=== PATIENT | male | born 1955 | race Caucasian/White ===

== ENCOUNTER 2020-04-19 23:13 | Emergency (ER) | payer OTHER, SELFPAY ==
--- NOTE | ~2020-04-19 | CT_ITS ---
EXAMINATION: CT abdomen pelvis wo con EXAM DATE: 04/19/2020 23:49 INDICATION: Right flank pain. TECHNIQUE: Spiral CT of the abdomen and pelvis was performed without contrast. Axial, coronal and sag ittal images were reviewed. The dose-length product (DLP) for this examination was 1040.59 mGy-cm. The exposure was tailored according to patient size (auto mA exposure control), and iterative reconst ruction (ASIR) was used as additional dose reduction technique. Comparison is made to prior examinati on from 01/22/2019. FINDINGS: There is a 4 x 6 mm stone in the proximal aspect of the right ureter causing mild obstructi ve nephropathy. The distal aspect of the ureters, and the bladder are not well evaluated due to metal lic artifact from bilateral hip replacements. Prostate is also poorly seen. There are small to modera te bilateral inguinal fat-containing hernias. Punctate left nephrolithiasis. Several small lesions in the right liver lobe inferiorly consistent with cysts measuring up to 1.2 cm . Adrenal glands, pancreas, spleen are unremarkable. There are cholecystectomy clips. There is no r etroperitoneal or pelvic lymphadenopathy. There is mild scattered arteriosclerotic disease. The appendix is normal. There is a 3 cm duodenal diverticulum. There is moderate sigmoid and descend ing colonic diverticulosis. There is no adjacent inflammatory change to suggest diverticulitis. No free intraperitoneal gas. The heart is normal in size. There are no pericardial or pleural effusio ns. The lung bases are unremarkable. There are no osteoblastic or osteolytic lesions identified. IMPRESSION: 1. Right proximal ureteral 4 x 6 mm stone, mild obstructive nephropathy. 2. Moderate colonic diverticulosis. 3. Duodenal diverticulum. 4. Punctate left nephrolithiasis. Reviewed, dictated and finalized at location G.
--- NOTE | ~2020-04-19 | XR_ITS ---
XR abdomen/kub 1V 04/20/2020 01:42 Indication: Kidney stones. Right flank pain. Procedure: KUB Comparison: CT dated 04/19/2020 Findings: Stable position of right mid ureteral stone at the L4 level overlying for differences of ary dalal. There are cholecystectomy clips. Bowel gas pattern nonobstructive. There are bilateral hip a rthroplasties. No acute osseous abnormality. Impression: 1: Stable position to 6 mm right mid ureteral stone at the L4 level. Reviewed, dictated and finalized at location A. Impression: 1: Stable position to 6 mm right mid ureteral stone at the L4 level.
[2020-04-19 23:17] VITALS: BP 148/75; PULSE 71; RESP 16; TEMP 36.5; O2SAT 99
--- NOTE | 2020-04-19 23:24 | ED.ABDPAIN ---
HPI - Abdominal Pain General Chief Complaint: Urogenital-Male Stated Complaint: flank pain Time Seen by Provider: 04/19/20 23:24 History of Present Illness HPI narrative: Intermittent right flank pain for the past week. Radiates to the RLQ. Severe at times, currently /10. associated with nausea. h/o kidney stone in the distant past, he believes that this is similar. No dyuria, hematuria, fever, chills. Related Data Allergies Allergy/AdvReac Type Severity Reaction Status Date / Time No Known Allergies Allergy Verified 08/11/19 09:22 Review of Systems Review of Systems: All systems reviewed & are unremarkable except as noted in HPI and below Constitutional: Constitutional: Denies fever(s) Cardiovascular: Cardiovascular: Denies chest pain Respiratory: Respiratory: Denies dyspnea Gastrointestinal: Gastrointestinal: Reports abdominal pain and Reports nausea Genitourinary: Genitourinary: Denies hematuria and Denies dysuria [facility] Past Medical History Medical History Elevated PSA HLD (hyperlipidemia) Left nephrolithiasis Type 2 diabetes mellitus Social History Social History Smoking status: Never smoker Second hand tobacco smoke exposure: Yes Alcohol intake: never Exam Const: General: healthy appearing, no acute distress and alert Orientation/consciousness: patient oriented x3 HENMT: Head: normal to inspection Neck: Neck: normal visual inspection and no lymphadenopathy Chest: Chest palpation & inspection: no tenderness Resp: Effort & Inspection: normal respiratory effort Auscultation: clear to auscultation bilaterally, no rales, no rhonchi and no wheezes Cardio: Jugular venous distension: no JVD Rate: regular rate Rhythm: regular rhythm Heart sounds: no murmurs GI: Inspection: non-distended GI Palp: Yes Soft to palpation and No Tenderness to palpation present (GI) Skin: General skin exam: normal color Neuro: General: patient oriented x3 and moves all extremities Speech: normal speech Extrem: General: no edema Psych: Appearance: well kempt Affect: normal affect Course Vital Signs Vital signs: Vital Signs Temperature 36.5 C 04/19/20 23:17 Pulse Rate 71 04/19/20 23:17 Respiratory Rate 16 04/19/20 23:17 Blood Pressure 148/75 H 04/19/20 23:17 Pulse Oximetry 99 04/19/20 23:17 Temperature 36.5 C 04/19/20 23:17 Pulse Rate 82 04/20/20 02:16 Respiratory Rate 20 04/20/20 02:16 Blood Pressure 139/77 04/20/20 02:16 Pulse Oximetry 97 04/20/20 02:16 MDM - Abdominal Pain MDM Narrative Medical decision making narrative: Moderate sized proximal stone. Pain under good control. I will discharge him home with pain meds, flomax, and urology follow-up. . pain significantly decreased. Likely passed stone while in ED. Medical Records Attestation: I reviewed the patient's medical records. Lab Data Attestation: I reviewed the patient's lab results. Result diagrams: 04/19/20 23:53 04/19/20 23:53 Labs: Lab Results 04/19/20 04/19/20 04/19/20 Range/Units 23:29 23:53 23:53 WBC 9.4 (4.5-10.0) K/mm3 RBC 4.87 (4.6-6.20) M/mm3 Hgb 15.1 (14.0-18.0) g/dL Hct 43.9 (42.0-52.0) % MCV 90.1 (80-100) fl MCH 31.0 (26-34) pg MCHC 34.4 (32-36) g/dl RDW 11.9 (11.5-14.5) % Plt Count 201 (150-375) k/mm3 MPV 10.4 (7.4-10.4) fl Immature Gran % (Auto) 0.6 H (0-0.5) % Neut % (Auto) 73.1 (45.5-73.1) % Lymph % (Auto) 14.5 L (18.3-44.2) % Bibb % (Auto) 9.2 H (2.6-8.5) % Eos % (Auto) 2.3 (0-4.4) % Baso % (Auto) 0.3 (0.2-1.2) % Lymph # (Auto) 1.36 (0.9-3.2) K/mm3 Bibb # (Auto) 0.9 H (0.1-0.6) K/mm3 Eos # (Auto) 0.2 (0-0.3) K/mm3 Baso # (Auto) 0.0 (0.0-0.1) K/mm3 Abs Immat Gran (auto) 0.06 H (0.00-0.031) K/mm3 Absolute Neuts (auto) 6.9 H
[2020-04-19 23:41] LABS: Add Urine Microscopic? YES; Appearance Urine Clear (Clear); Bilirubin Urine Negative (Negative); Blood Urine 2+ (Negative); Color Urine Straw (Yellow); Glucose Urine UA Negative (Negative); Ketones Urine Negative (Negative); Leukocyte Esterase Ur Negative LEU/UL (Negative); Nitrate Urine Negative (Negative); Protein Urine Negative (Negative); Specific Grav Ur 1.014 (1.001-1.035); Urobilinogen Urine Negative mg/dL (<2.0); WBC Urine 0-3 /hpf
[2020-04-20 00:14] LABS: Anion Gap 10 mmol/L (8-16); Blood Urea Nitrogen 29 mg/dL (9-20); Calcium 8.8 mg/dL (8.4-10.2); Carbon Dioxide 25 mmol/L (22-30); Chloride 102 mmol/L (98-107); Estimated Glomerular Filt Rate > 60; Glucose 102 mg/dL (75-110); Potassium 4.1 mmol/L (3.4-5.0); Sodium 137 mmol/L (137-145)
[2020-04-20 00:20] LABS: Basophils Percent Auto 0.3 % (0.2-1.2); Eosinophils Absolute Auto 0.2 K/mm3 (0-0.3); Eosinophils Percent Auto 2.3 % (0-4.4); Hematocrit 43.9 % (42.0-52.0); Hemoglobin 15.1 g/dL (14.0-18.0); Immature Granulocyte Absolute 0.06 K/mm3 (0.00-0.031); Immature Granulocyte Percent A 0.6 % (0-0.5); Lymphocytes Absolute Auto 1.36 K/mm3 (0.9-3.2); Lymphocytes Percent Auto 14.5 % (18.3-44.2); Mean Corpuscular HGB Conc 34.4 g/dl (32-36); Mean Corpuscular Volume 90.1 fl (80-100); Mean Platelet Volume 10.4 fl (7.4-10.4); Monocytes Absolute Auto 0.9 K/mm3 (0.1-0.6); Monocytes Percent Auto 9.2 % (2.6-8.5); Neutrophils Absolute Auto 6.9 K/mm3 (1.3-6.7); Neutrophils Percent Auto 73.1 % (45.5-73.1); Platelet Count Result 201 k/mm3 (150-375); Red Blood Count 4.87 M/mm3 (4.6-6.20); Red Cell Distribution Width 11.9 % (11.5-14.5); White Blood Count 9.4 K/mm3 (4.5-10.0)
[2020-04-20] MEDS: SODIUM CHLORIDE 0.9% IV 1,000 ML 999 ML IV CONT (00:20)
[2020-04-20] MEDS: TAMSULOSIN HCL 0.4 MG CAPSULE PO (00:21)
[2020-04-20] MEDS: MORPHINE SULFATE 4 MG/ML INJ IV PUSH (01:04)
[2020-04-20 02:16] VITALS: BP 139/77; PULSE 82; RESP 20; O2SAT 97
== END 2020-04-20 03:03 | disposition home or self-care (01) ==
PROVIDERS: Emergency Provider Emergency Medicine; PCP Family Medicine
DX: N20.1 Calculus of ureter (principal); N13.8 Other obstructive and reflux uropathy; E78.5 Hyperlipidemia, unspecified; E11.9 Type 2 diabetes mellitus without complications; Z87.442 Personal history of urinary calculi; N20.0 Calculus of kidney; K57.50 Diverticulosis of both small and large intestine without perforation or abscess without bleeding
CPT/HCPCS: 36415; 74018; 74176; 80048; 81001; 85025; 96361; 96374; 99284; A9270; J2270; J7030

== ENCOUNTER → 2020-05-13 14:40 | Outpatient (CLI) | payer BC, SELFPAY ==
--- NOTE | ~2020-05-13 | XR_ITS ---
EXAMINATION: XR abdomen/kub 1V INDICATION: Bilateral kidney stones TECHNIQUE: Supine views of the abdomen were obtained on 2 radiographs. COMPARISON: 04/20/2020 FINDINGS: The previously described 6 mm right mid ureteral stone appears to have migrated to the dist al ureter, projecting over the right sacrum. No additional urolithiasis is identified. The bowel gas pattern is normal. There is mild lumbar spondylosis. Bilateral hip arthroplasties are noted. IMPRESSION: 1. Slight interval distal migration of the previously described right mid ureteral stone into the dis kevin ureter. Reviewed, dictated and finalized at location A. IMPRESSION: 1. Slight interval distal migration of the previously described right mid urete ral stone into the distal ureter.
== END ==
PROVIDERS: PCP Family Medicine; Visit Provider Urology
DX: N20.0 Calculus of kidney (principal); N20.1 Calculus of ureter
CPT/HCPCS: 74018

== ENCOUNTER 2020-05-15 01:56 | Outpatient (CLI) | payer BC, SELFPAY ==
[2020-05-15 19:19] LABS: SARS-CoV-2 RNA PCR Negative
== END 2020-05-15 01:57 | disposition home or self-care (01) ==
LOC: ANHCOVIDDT 01:57
PROVIDERS: PCP Family Medicine; Visit Provider Urology
DX: Z01.812 Encounter for preprocedural laboratory examination (principal); Z20.828 Contact with and (suspected) exposure to other viral communicable diseases
CPT/HCPCS: 87635; C9803; U0003

== ENCOUNTER 2020-05-16 04:27 | Day surgery (SDC) | payer BC, SELFPAY ==
[2020-05-14 12:16] VITALS: BMI 31.6
[2020-05-16] VITALS (8 sets, daily range): BP systolic 130–159; BP diastolic 68–84; PULSE 58–77; RESP 14–20; TEMP 36.4–36.8; O2SAT 97–99
--- NOTE | ~2020-05-16 | XR_ITS ---
EXAMINATION: XR stent kub - surgery DATE: 05/16/2020 12:25 INDICATION: Ureteral stent placement TECHNIQUE: 4 fluoroscopic spot images of the abdomen and pelvis were obtained during procedure perfor med by Dr. Retana. Radiologist was not present for the imaging or procedure. The amount of fluoroscop y time used during this procedure was 0.5 minutes. COMPARISON: CT dated 04/19/2020 FINDINGS: Funding Analyst image demonstrates cholecystectomy clips in right upper quadrant. The stone previously seen in the mid right ureter is not clearly visualized on the health services rn image. Final images demonstrate placement of a right internal ureteral stent with loops formed over the expected location of the right renal p evelin and bladder. Partially visualized are bilateral total hip arthroplasties. IMPRESSION: 1. Right internal ureteral stent placement which is in expected position. See procedure note for furt her detail. Reviewed, dictated and finalized at location A. IMPRESSION: 1. Right internal ureteral stent placement which is in expected position. See p rocedure note for further detail.
--- NOTE | 2020-05-16 06:49 | WPDHPUPDATE1 ---
History and Physical Update Update Date/Time: 05/16/20 06:49 History and Physical has been reviewed, including an updated exam of the patient. There are NO changes in the patient's condition. Risks, benefits, and alternatives have been discussed and questions answered. Patient agrees to proceed with procedure.
--- NOTE | 2020-05-16 10:04 | ECG_ITS ---
Measurements Intervals [place] Rate: 62 P: -2 LA: 199 QRS: -12 QRSD: 111 T: 51 QT: 390 QTc: 398 Interpretive Statements SINUS RHYTHM INTRAVENTRICULAR CONDUCTION DELAY DELAYED PRECORDIAL R/S TRANSITION BORDERLINE ECG Electronically Signed On 05-16-2020 11:12:14 CDT by Nir Bay D.O.
--- NOTE | 2020-05-16 10:21 | WPDANESEPPF ---
Anes - Initial Pre Proc Eval Procedure: Operation Date: 05/16/20 12:00 Proposed Procedures p Cystoscopy, Right Ureteroscopy, Right Stone Extraction, Possible Right Stent Placement - Mika Retana MD s Possible Holmium Laser Procedure - Mika Retana MD Date/Time: 05/16/20 10:21 Surgeon: Mika Retana MD Pre Op Diagnosis: Right Ureteral Stone Patient Data Age: 64 Gender: M Height: 5 ft 7 in Weight: 91.63 kg Allergies Allergy/AdvReac Type Severity Reaction Status Date / Time No Known Allergies Allergy Verified 05/14/20 12:19 Home Medications Medication Instructions Recorded Confirmed Type simvastatin 20 mg tablet 20 mg PO DAILY #90 tablet 01/22/20 05/14/20 Rx Soybean Lecithin 1 cap PO DAILY 05/14/20 History aspirin 81 mg PO DAILY 05/14/20 05/14/20 History cranberry 500 mg PO DAILY 05/14/20 05/14/20 History diphenhydramine-acetaminophen 2 tablet PO HS 05/14/20 05/14/20 History [Tylenol PM Extra Strength] glucos sul [id number]-Mn 1 cap PO DAILY 05/14/20 05/14/20 History [Glucosamine Chondroitin] multivitamin 1 tablet PO DAILY 05/14/20 05/14/20 History omega 7-lsl-itk-fish oil [Fish Oil] 1 cap PO BID 05/14/20 05/14/20 History turmeric 800 mg PO DAILY 05/14/20 05/14/20 History Patient hx anesthesia problems: none Family hx anesthesia problems: none PMFSH Past Medical History Medical History Elevated PSA HLD (hyperlipidemia) Left nephrolithiasis Type 2 diabetes mellitus Social History Social History Smoking status: Never smoker Second hand tobacco smoke exposure: Yes Alcohol intake: never Spiritual care concerns: No Anes - Eval Final PreProcedure Day of Procedure 05/16/20 10:21 Patient weight: obese Heart: regular rate and rhythm Lungs: clear to auscultation Airway: Mallampati scale class II Neurological: alert and oriented Last oral intake: >/= 8 hours ASA classification: III Emergent: no Anesthetic plan: proceed Anesthesia type and monitoring: general LMA and standard monitoring Informed Consent: The patient's anesthetic plan and its attendant risks and benefits were discussed with the patient/family/POA. Questions were solicited and answers provided to the satisfaction of the patient/family/POA.
[2020-05-16] MEDS: LACTATED RINGERS 1,000 ML 30 ML IV CONT (10:36)
[2020-05-16 10:57] LABS: Glucose Point of Care 107 (65-105)
[2020-05-16] MEDS: ceFAZolin 2 GM/D5W 50 ML 2 GM/50 ML BAG IVPB (11:41)
[2020-05-16] MEDS: LIDOCAINE HCL 2% GEL UROJET 10 ML PKG MUCOUS MEM (11:56)
--- NOTE | 2020-05-16 12:23 | PM.PROC ---
Procedure Note - Detailed Date of procedure: 05/16/20 Pre-op diagnosis: Right Ureteral Stone Post-op diagnosis: same Procedure performed: Cystoscopy, right ureteroscopy with laser lithotripsy, right ureteral stone extraction and right ureteral stent placement. Description of procedure: The patient was brought to the operative suite where he is prepped and draped in a routine sterile fashion while in the dorsal lithotomy position after the uneventful induction of a general LMA anesthetic. A 19F rigid cystoscope was placed in the bladder. There are no urethral strictures. His prostatic urethra measures, approximately, 2.0cm with no median lobe enlargement. The bladder mucosa was endoscopically normal without hyperemia or neoplasm. There was a single, orthotopic ureteral orifice bilaterally. A 0.035 glidewire was advanced into the right renal pelvis under fluoroscopy. The distal ureter was dilated with an 8F/10F ureteral dilator. Ureteroscopy was undertaken with a short tapered semi-rigid ureteroscope. During ureteroscopy I fractured the stone into smaller pieces using a 273 micron Holmium laser fiber with the Holmium laser. I was able to then extract the stone pieces using a 1.9F Escape, disposable stone basket. Due to the extent of this manipulation I did place a 4.8F double-J ureteral stent. The proximal coil of the stent was confirmed to be in the renal pelvis and the distal coil in the bladder. The patient's bladder was emptied and he was taken to the recovery room having tolerated this procedure well. Anesthesia: GLMA Surgeon: Mika Retana MD Estimated blood loss (mL): 0 Drains: No Packing: No Pathology: yes Complications: No immediate complications Condition: stable Disposition: PACU
[2020-05-16 12:36] LABS: Glucose Point of Care 108 (65-105)
--- NOTE | 2020-05-16 13:24 | SUR.PHASEII ---
1319; PT ARRIVED INTO [place]. WALKED TO BATHROOM. GAIT STEADY
--- NOTE | 2020-05-16 13:42 | SUR.PHASEII ---
PT AWAKE AND ALERT. DENIES PAIN. STATES CARROLL WITH URINATION ONLY. ASKING IF HE CAN GO HOME
--- NOTE | 2020-05-16 14:15 | SUR.PHASEII ---
1415; PT VOIDED IN BATHROOM. STATES PAIN MODERATE WITH URINATION. ABLE TO PASS URINE FREELY, BLOODY. STATES HE DOES NOT WANT ANY PAIN MEDICINE AT THIS TIME. DRESSED AND WAITING FOR RIDE.
== END 2020-05-16 14:27 | disposition home or self-care (01) ==
PROVIDERS: PCP Family Medicine; Visit Provider Urology
PROC: (CPT 52352; principal; 2020-05-16 12:00)
PROC: (CPT 52356; 2020-05-16 12:00)
DX: N20.1 Calculus of ureter (principal); E11.9 Type 2 diabetes mellitus without complications; E78.5 Hyperlipidemia, unspecified; Z79.82 Long term (current) use of aspirin; E66.9 Obesity, unspecified; Z68.31 Body mass index [BMI] 31.0-31.9, adult
CPT/HCPCS: 52356; 82365; 88300; 93005; A9270; C1769; C2617; J0690; J1100; J2250; J2405; J2704; J3010; J7120; Q9966

== ENCOUNTER → 2020-11-09 05:29 | Outpatient (CLI) | payer MEDICARE, SELFPAY ==
[2020-11-09 19:34] LABS: SARS-CoV-2 RNA PCR Negative
== END ==
PROVIDERS: PCP Family Medicine; Visit Provider Internal Medicine Gastroenterology
DX: Z01.812 Encounter for preprocedural laboratory examination (principal); Z20.822 Contact with and (suspected) exposure to COVID-19
CPT/HCPCS: C9803; U0003; U0005

== ENCOUNTER 2020-11-13 01:36 | Day surgery (SDC) | payer MEDICARE, SELFPAY ==
[2020-10-31 09:11] VITALS: BMI 32.8
[2020-11-13 06:27] VITALS: BP 136/80; PULSE 73; RESP 16; TEMP 36.6; O2SAT 94; BMI 34.0
[2020-11-13] MEDS: LACTATED RINGERS 1,000 ML 150 ML IV CONT (06:36)
--- NOTE | 2020-11-13 06:59 | PM.HPGS ---
History of Present Illness History of Present Illness Consent: Risks, benefits, and alternatives have been discussed and questions answered. Patient agrees to proceed with procedure. Chief complaint: neoplasm screening Narrative: Joe Loja is a 65 year old male Referred for colon cancer screening. Review of Systems Review of Systems: All systems reviewed & are unremarkable except as noted in HPI and below PMFSH Past Medical History Medical History Elevated PSA HLD (hyperlipidemia) Left nephrolithiasis Obesity (BMI 30.0-34.9) Obstructive sleep apnea Type 2 diabetes mellitus Social History Social History Smoking status: Never smoker Second hand tobacco smoke exposure: Yes Alcohol intake: never Substance use: never Substance use type: does not use Living arrangements: with family Spiritual care concerns: No Meds Home Medications and Allergies Home Medications Medication Instructions Recorded Confirmed Type simvastatin 20 mg tablet 20 mg PO DAILY #90 tablet 01/22/20 11/13/20 Rx Glucosamine Chondroitin 1 cap PO DAILY 05/14/20 11/13/20 History Soybean Lecithin 1 cap PO DAILY 05/14/20 11/13/20 History aspirin 81 mg PO DAILY 05/14/20 11/13/20 History cranberry 500 mg PO DAILY 05/14/20 11/13/20 History multivitamin 1 tablet PO DAILY 05/14/20 11/13/20 History omega 8-gsc-mor-fish oil [Fish Oil] 1 cap PO BID 05/14/20 11/13/20 History turmeric 800 mg PO DAILY 05/14/20 11/13/20 History diphenhydramine HCl [Allergy 50 mg PO HS 10/31/20 11/13/20 History (diphenhydramine)] Allergies Allergy/AdvReac Type Severity Reaction Status Date / Time No Known Allergies Allergy Verified 11/13/20 06:24 Vital Signs Vital Signs - 24 hr 11/13/20 06:27 Temperature 36.6 C Pulse Rate 73 Respiratory Rate 16 Blood Pressure 136/80 Pulse Oximetry 94 Exam Resp: Auscultation: clear to auscultation bilaterally Cardio: Rate: regular rate Rhythm: regular rhythm GI: GI Palp: Yes Soft to palpation and No Tenderness to palpation present (GI) Assessment and Plan Assessment and plan (1) Colon cancer screening: Code(s): Z12.11 - Encounter for screening for malignant neoplasm of colon Status: Acute Assessment and Plan: Colonoscopy with possible biopsy or polypectomy or cautery or injection of substances.
--- NOTE | 2020-11-13 07:16 | WPDANESEPPF ---
Anes - Initial Pre Proc Eval Procedure: Operation Date: 11/13/20 07:30 Proposed Procedures p Screening Colonoscopy - Brandon Baker MD Date/Time: 11/13/20 07:16 Surgeon: Brandon Baker MD Pre Op Diagnosis: neoplasm screening Patient Data Age: 65 Gender: M Height: 5 ft 7 in Weight: 98.7 kg Last Vital Signs Temp 97.8 F 11/13/20 06:27 Pulse 73 11/13/20 06:27 Resp 16 11/13/20 06:27 BP 136/80 11/13/20 06:27 Pulse Ox 94 11/13/20 06:27 Allergies Allergy/AdvReac Type Severity Reaction Status Date / Time No Known Allergies Allergy Verified 11/13/20 06:24 Home Medications Medication Instructions Recorded Confirmed Type simvastatin 20 mg tablet 20 mg PO DAILY #90 tablet 01/22/20 11/13/20 Rx Glucosamine Chondroitin 1 cap PO DAILY 05/14/20 11/13/20 History Soybean Lecithin 1 cap PO DAILY 05/14/20 11/13/20 History aspirin 81 mg PO DAILY 05/14/20 11/13/20 History cranberry 500 mg PO DAILY 05/14/20 11/13/20 History multivitamin 1 tablet PO DAILY 05/14/20 11/13/20 History omega 2-rer-ive-fish oil [Fish Oil] 1 cap PO BID 05/14/20 11/13/20 History turmeric 800 mg PO DAILY 05/14/20 11/13/20 History diphenhydramine HCl [Allergy 50 mg PO HS 10/31/20 11/13/20 History (diphenhydramine)] Patient hx anesthesia problems: none Family hx anesthesia problems: none PMFSH Past Medical History Medical History Elevated PSA HLD (hyperlipidemia) Left nephrolithiasis Obesity (BMI 30.0-34.9) Obstructive sleep apnea Type 2 diabetes mellitus Social History Social History Smoking status: Never smoker Second hand tobacco smoke exposure: Yes Alcohol intake: never Substance use: never Substance use type: does not use Living arrangements: with family Spiritual care concerns: No Anes - Eval Final PreProcedure Day of Procedure 11/13/20 07:16 Patient weight: obese Heart: regular rate and rhythm Lungs: clear to auscultation Airway: Mallampati scale class II Neurological: alert and oriented Last oral intake: >/= 8 hours ASA classification: III Emergent: no Anesthetic plan: proceed Anesthesia type and monitoring: general GIVS and standard monitoring Informed Consent: The patient's anesthetic plan and its attendant risks and benefits were discussed with the patient/family/POA. Questions were solicited and answers provided to the satisfaction of the patient/family/POA.
[2020-11-13 07:43] VITALS: BP 116/72; PULSE 70; RESP 13; O2SAT 94
[2020-11-13 07:53] VITALS: BP 102/65; PULSE 72; RESP 22; O2SAT 98
[2020-11-13 08:09] VITALS: BP 125/83; PULSE 72; RESP 22; O2SAT 98
== END 2020-11-13 08:17 | disposition home or self-care (01) ==
PROVIDERS: PCP Family Medicine; Visit Provider Internal Medicine Gastroenterology
PROC: 0DJD8ZZ Inspection of Lower Intestinal Tract, Via Natural or Artificial Opening Endoscopic (ICD-10-PCS; CPT 45378; principal; 2020-11-13 07:30)
DX: Z12.11 Encounter for screening for malignant neoplasm of colon (principal); K57.30 Diverticulosis of large intestine without perforation or abscess without bleeding; Z86.010 Personal history of colon polyps; E78.5 Hyperlipidemia, unspecified; E11.9 Type 2 diabetes mellitus without complications; G47.33 Obstructive sleep apnea (adult) (pediatric); E66.9 Obesity, unspecified; Z68.34 Body mass index [BMI] 34.0-34.9, adult; Z79.82 Long term (current) use of aspirin
CPT/HCPCS: G0105; J2704; J7120

== ENCOUNTER → 2021-02-17 03:31 | Outpatient (CLI) | payer MEDICARE, SELFPAY ==
[2021-02-17 16:50] LABS: SARS-CoV-2 RNA PCR Negative
== END ==
PROVIDERS: PCP Family Medicine; Visit Provider Internal Medicine Critical Care Medicine
DX: R68.89 Other general symptoms and signs (principal); Z20.822 Contact with and (suspected) exposure to COVID-19
CPT/HCPCS: C9803; U0003; U0005

== ENCOUNTER 2021-02-19 09:54 | Outpatient (CLI) | payer MEDICARE, SELFPAY ==
--- NOTE | 2021-03-10 07:12 | WPDSLEEPSTUD ---
Sleep Study Date of Study: 02/19/21 Ordering Provider: Nikki Corado MD Interpreting Physician: Poly Marshall MD Sleep Study Type: CPAP Titration Height: 1.7 m Weight: 210 kg Body Mass Index: 72.5 Neck Circumference (inches): 18 [place]: 4 Reason for Sleep Study Hypersomnolence; known obstructive sleep apnea * Split night study 11/06/2011 - severe obstructive sleep apnea, AHI 35.1, heavy snoring, moderate myoclonus, desaturation to 82%, optimal pressure 10 cm Sleep History Joe Loja is a 65 year old male with obstructive sleep apnea who uses CPAP without feeling refreshed in the mornings despite compliance with treatment. His last sleep study was November 06, 2011 iwth an optimal pressure of 10 cm. He did not complete a sleep questionnaire for this visit. [facility] Past Medical History Medical History (Updated 03/10/21 @ 07:39 by Poly Marshall MD) Elevated PSA HLD (hyperlipidemia) Left nephrolithiasis Normal colonoscopy (~11/2020) Obesity (BMI 30.0-34.9) Obstructive sleep apnea Type 2 diabetes mellitus Social History Social History (Updated 12/26/20 @ 08:28 by Saira Bolton [facility]) Second hand tobacco smoke exposure: Yes Alcohol intake: never Substance use: never Substance use type: does not use Spiritual care concerns: No Agree to blood products: Yes Medications Home Medications Medication Instructions Recorded Confirmed Type simvastatin 20 mg tablet 20 mg PO DAILY #90 tablet 01/22/20 11/13/20 Rx Glucosamine Chondroitin 1 cap PO DAILY 05/14/20 11/13/20 History Soybean Lecithin 1 cap PO DAILY 05/14/20 11/13/20 History aspirin 81 mg PO DAILY 05/14/20 11/13/20 History cranberry 500 mg PO DAILY 05/14/20 11/13/20 History multivitamin 1 tablet PO DAILY 05/14/20 11/13/20 History omega 0-mot-dym-fish oil [Fish Oil] 1 cap PO BID 05/14/20 11/13/20 History turmeric 800 mg PO DAILY 05/14/20 11/13/20 History diphenhydramine HCl [Allergy 50 mg PO HS 10/31/20 11/13/20 History (diphenhydramine)] Sleep Procedure This test was performed using the [employer] multiple channel system including EOG, EEG, submental EMG, EKG, nasal and oral airflow using thermistors and nasal pressure sensors, chest and abdominal belts for body position data, and pulse oximetry. Video monitoring was also performed. The study was scored using [facility] guidelines. He took 2 Tylenol PM at the start of the test. The patient was started on CPAP using a ResMed AirFit P 30 nasal pillow and heated humidifier with an initial pressure of 5 cm titrated to a maximal pressure of 12 cm. When he reached 10 cm, he said that he was going to go home, was finished with the test. The tech asked him to stay, and he was able to return to sleep, had a small amount of REM at a pressure of 12 cm water pressure. Sleep efficiency was low 29% however the apnea-hypopnea index was 0. The minimum saturation was 86%. At this pressure, he spent 29 minutes in bed, 3 minutes in REM, 4 minutes in non-REM, minimum saturation was 86%, with a mean saturation of 89.6%. He did not have sustained hypoxemia at this pressure. Sleep Architecture Recording time is 355.1 minutes. Sleep duration 272 minutes. Sleep efficiency 76.6%. Sleep latency is short at 4.4 minutes. REM latency 76.5 minutes. He had 37 awakenings. He spent 22.5% of the study awake after sleep onset. Sleep architecture showed 6.4% stage 1 sleep, 59.6% stage 2 sleep, absence of stage 3 sleep and 11.5% stage REM. He spent 47.4% of this CPAP titration supine. He had 3 fragmented REM cycles. Respiratory Analysis The apnea-hypopnea index is 2.0, all obstructive events. in supine REM he had 3 obstructive hypopneas for an index of 8.0. In nonsupine REM he had 1 obstructive hypopnea for an index of 3.3. In supine non-REM he had 2 obstructive hypopneas for an index of 0.8. And nonsupine non-REM he had 3 obstructive hypopneas for an index of 2.1. The supine index is 1.8. Nonsupine index is 2.3. [place]
[2021-03-10 07:42] VITALS: BMI 72.5
== END 2021-02-20 05:56 | disposition home or self-care (01) ==
LOC: ANHCSM 09:56
PROVIDERS: PCP Family Medicine; Visit Provider Family Medicine
DX: G47.33 Obstructive sleep apnea (adult) (pediatric) (principal)
CPT/HCPCS: 95811

== ENCOUNTER 2021-11-06 12:35 | Outpatient (CLI) | payer MEDICARE, SELFPAY ==
--- NOTE | 2021-11-06 12:50 | ECG_ITS ---
Measurements Intervals [place] Rate: 81 P: 42 WI: 182 QRS: -2 QRSD: 109 T: 50 QT: 359 QTc: 419 Interpretive Statements SINUS RHYTHM BASELINE ARTIFACT COMPARED TO ECG 05/16/2020 10:21:07 NO SIGNIFICANT CHANGES Electronically Signed On 11-06-2021 15:48:06 CDT by Maik Higgins M.D.
== END 2021-11-06 12:36 | disposition home or self-care (01) ==
LOC: ANHCARD 12:39
PROVIDERS: PCP Family Medicine; Visit Provider Family Medicine
DX: E11.9 Type 2 diabetes mellitus without complications (principal)
CPT/HCPCS: 93005

== ENCOUNTER 2024-09-06 15:14 | Outpatient (CLI) | payer MEDICARE, SELFPAY ==
--- NOTE | ~2024-09-06 | US_ITS ---
EXAMINATION: US venous doppler [facility] DATE: 09/06/2024 16:23 INDICATION: Lower limb pain, swelling and erythema TECHNIQUE: Grayscale ultrasound images without and with compression and Doppler ultrasound images of the left lower extremity veins were obtained. COMPARISON: None. FINDINGS: There is noncompressible deep venous thrombosis throughout the veins of the left lower limb including the visualized portions of left common femoral vein, profunda (deep) femoral vein, femoral vein, pop liteal vein, peroneal veins, posterior tibial veins and gastrocnemius vein. The left greater saphenou s vein remains patent and compressible. IMPRESSION: 1. Extensive left [id number] and [id number]-dyc-ycoy deep venous thrombosis. Reviewed, dictated and finalized at location B. [employer] IMPRESSION: 1. Extensive left [id number] and [id number]-rgr-vtri deep venous thrombosis.
--- OUTSIDE RECORDS SUMMARY | 2024-09-06 16:02 | XMS_ITS | Patient Health Summary ---
Author Organization [facility] Address [address] [place] [address] Care Team Providers Care Job Change Crew Member Name Role Phone Fany SCRUGGS MD, Tristen Unavailable [phone] Nikki Corado MD Primary Care Provider [phone] Note from [facility],non-owned Affiliates and Associated Physician Practices is amultiple site organization consisting of ambulatory clinics and hospital sitesin [place], [place], [place] and [place]. This disclosure is being madepursuant to the Care Everywhere program and may not contain all information available regarding this patient. Last updated 18.[facility] Allergies No known active allergies Medications * Be aware that medications may not be up to date on this document. Alwaysverify current medications with the patient. * [place] 3-6-9 Fatty Acids (TRIPLE [place]-3-6-9 PO) Take by mouth at bedtime * Turmeric 450 MG CAPS Take 2 Caps by mouth at bedtime * Lecithin 1200 MG CAPS Take by mouth at bedtime 1325mg at bedtime * simvastatin (ZOCOR) 20 MG tablet(Started 04/30/2019) TAKE 1 TABLET BY MOUTH ONCE DAILY IN THE EVENING 1 refill left * Multiple Vitamin (MULTIVITAMIN ADULT PO) * ELDERBERRY PO Take 50 mg by mouth once daily * Multiple Vitamins-Minerals (ZINC PO) Take 50 mg by mouth once daily * CRANBERRY PO Take 15,000 mg by mouth * Ascorbic Acid (VITAMIN C PO) * ibuprofen (Motrin) 800 MG tablet(Started 05/11/2024) Take 1 (one) tablet by mouth 3 times daily as needed with food for Pain 1 refill by 05/11/2025 * nystatin (Mycostatin) 283035 UNIT/GM cream(Started 05/11/2024) Apply to affected area 2 times daily Right axilla/ armpit as needed for rash or itching. 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 Arthralgia of hip 11/25/2017 Right hip pain 11/01/2017 Bilateral hip pain 01/28/2015 Left hip pain 01/28/2015 Social History Tobacco Use Types Packs/Day Years Used Date Smoking Tobacco: Never Smokeless Tobacco: Never Tobacco Cessation:Counseling Given: Not Answered Alcohol Use Standard Drinks/Week Comments No 0 (1 standard drink = 0.6 oz pur e alcohol) PHQ-2 Answer Date Recorded Patient Health Questionnaire-2 Score 3 08/06/2024 Sex and Gender Information Value Date Recorded Sex Assigned at Not on file Gender Identity Not on file Sexual Orientation Not on file Last Filed Vital Signs Vital Sign Reading Time Taken Comments Blood Pressure 123/70 05/11/2024 3:05 PM CDT Pulse 81 05/11/2024 3:05 PM CDT Temperature 36.2 ??C (97.1 ??F) 05/11/2024 2:00 PM CD T Respiratory Rate 22 05/11/2024 3:05 PM CDT Oxygen Saturation 91% 05/11/2024 3:05 PM CDT Inhaled Oxygen Concentration - - Weight 109.8 kg (242 lb) 05/11/2024 9:20 AM CDT Height 167.6 cm (5' 6 ) 05/11/2024 9:20 AM CDT Body Mass Index 39.06 05/11/2024 9:20 AM CDT Medical Devices Implanted Type Area Home Appraiser Device Identifier Shelf Expiration Date Model / Serial / Lot Acetabular Cup Implanted:Qty: 1 on 03/12/2015 by Tristen Soares IV, MD at [facility] Left: Hip [employer] 10/06/2024 [id number] / / [id number] Acetabular Liner Implanted:Qty: 1 on 03/12/2015 by Tristen Soares IV, MD at [facility] Left: [employer] 01/03/2020 [id number] / / [id number] Scrw Selftap Lo Prof Ti 6.5 X 30mm Implanted:Qty: 1 on 03/12/2015 by Tristen Soares IV, MD at [facility] Left: [employer] 02/12/2025 [id number] / / [id number] Ceramic Head Implanted:Qty: 1 on 03/12/2015 by Tristen Soares IV, MD at [facility] Left: [employer] 03/08/2025 [id number] / / [id number] Micro Femoral Stem Implanted:Qty: 1 on 03/12/2015 by Tristen Soares IV, MD at [facility] Left: [employer] 05/08/2024 [id number] / / [id number] Minus 3 Taper Adapter Implanted:Qty: 1 on 03/12/2015 by Tristen Soares IV, MD at [facility] Left: Hip [employer] 11/06/2024 [id number] / / [id number] Slv Centering G7 Std Ofst Tpr Hip Ti Ty Implanted:Qty: 1 on 11/25/2017 by Tristen Soares IV, MD at [facility] Right: Hip [employer]ilo [employer] 02/16/2027 [id number] / / [id number] Stem Tprlok Microplast Hi Offst Sz 15 Implanted:Qty: 1 on 11/25/2017 by Tristen Soares IV, MD at [facility] Right: Hip [employer] 06/10/2027 [id number] / / [id number] Shell Actb 56mm Hip Lmt Hl Clr Cd Por G7 Implanted:Qty: 1 on 11/25/2017 by Tristen Soares IV, MD at [facility] Right: Hip [employer] 10/28/2027 [id number] / / [id number] Liner Actb G7 F Ntrl 36mm E1 Hip Implanted:Qty: 1 on 11/25/2017 by Tristen Soares IV, MD at [facility] Right: Hip [employer] 10/23/2022 [id number] / / [id number] Head Fem 36mm Hip Blx D Biolox Optn G7 Implanted:Qty: 1 on 11/25/2017 by Tristen Soares IV, MD at [facility] Right: Hip [employer] 03/17/2027 [id number] / / [id number] Stem Hum W/Align Tpr 45deg 17mm X 55mm Implanted:Qty: 1 on 12/02/2021 by Roxy Layton MD at [facility] Right: Shoulder [employer] 10/25/2030 [id number] / / [id number] Bsplt Glnd Cmprh 25 Mm Mini Shldr Tpr Ad Implanted:Qty: 1 on 12/02/2021 by Roxy Layton MD at [facility] Right: Shoulder [employer] 08/27/2030 [id number] / / [id number] Cmpnt Glnd 40mm Std Rvrs Glenosphere Implanted:Qty: 1 on 12/02/2021 by Roxy Layton MD at [facility] Right: Shoulder [employer] 10/03/2031 [id number] / / [id number] Screw 6.5mm 30mm 3.5mm Cntr Hex Shldr Implanted:Qty: 1 on 12/02/2021 by Roxy Layton MD at [facility] Right: Shoulder [employer] 05/08/2031 [id number] / / [id number] Screw 4.75mm 15mm 3.5mm Lck Fx Ang Hex Implanted:Qty: 1 on 12/02/2021 by Roxy Layton MD at [facility] Right: Shoulder [employer] 11/01/2031 [id number] / / [id number] Screw 4.75mm 20mm 3.5mm Lck Fx Ang Hex Implanted:Qty: 1 on 12/02/2021 by Roxy Layton MD at [facility] Right: Shoulder [employer] 11/06/2031 [id number] / / [id number] Screw 4.75mm 30mm 3.5mm Lck Fx Ang Hex Implanted:Qty: 1 on 12/02/2021 by Roxy Layton MD at [facility] Right: Shoulder [employer] 08/12/2031 [id number] / / [id number] Screw 4.75mm 15mm 3.5mm Lck Fx Ang Hex Implanted:Qty: 1 on 12/02/2021 by Roxy Layton MD at [facility] Right: Shoulder [employer] 11/01/2031 [id number] / / [id number] Mini Humeral Tray Implanted:Qty: 1 on 12/02/2021 by Roxy Layton MD at [facility] Right: Shoulder 01/19/2031 [id number] / / [id number] Brng Hum 40mm Cmprh Std Shldr Vivacit-E Implanted:Qty: 1 on 12/02/2021 by Roxy Layton MD at [facility] Right: Shoulder [employer] [id number] / / [id number] Procedures * XR SHOULDER RIGHT 2VW OR MORE(Performed 08/07/2024) Performed for Chronic right shoulder pain * XR SHOULDER RIGHT 2VW OR MORE(Performed 05/31/2024) Performed for Chronic right shoulder pain * IMAGING/RADIOLOGY/XRAY RESULTS ORDER(Performed 05/12/2024) * CULTURE TISSUE+GRAM STAIN(Performed 05/11/2024) Performed for Right shoulder pain, unspecified chronicity * CULTURE ANAEROBE(Performed 05/11/2024) Performed for Right shoulder pain, unspecified chronicity * CULTURE TISSUE+GRAM STAIN(Performed 05/11/2024) Performed for Right shoulder pain, unspecified chronicity * CULTURE ANAEROBE(Performed 05/11/2024) Performed for Right shoulder pain, unspecified chronicity * CULTURE TISSUE+GRAM STAIN(Performed 05/11/2024) Performed for Right shoulder pain, unspecified chronicity * CULTURE ANAEROBE(Performed 05/11/2024) Performed for Right shoulder pain, unspecified chronicity * CULTURE TISSUE+GRAM STAIN(Performed 05/11/2024) Performed for Right shoulder pain, unspecified chronicity * CULTURE ANAEROBE(Performed 05/11/2024) Performed for Right shoulder pain, unspecified chronicity * CULTURE TISSUE+GRAM STAIN(Performed 05/11/2024) Performed for Right shoulder pain, unspecified chronicity * CULTURE ANAEROBE(Performed 05/11/2024) Performed for Right shoulder pain, unspecified chronicity * ENDOTRACHEAL TUBE NOTE(Performed 05/11/2024) * ME SHOULDER ARTHROSCOPY/SURGERY(Performed 05/11/2024) Performed for Right shoulder pain, unspecified chronicity * PERIPHERAL BLOCK(Performed 05/11/2024) * DRAW AND HOLD GREEN(Performed 03/29/2024) Performed for Preop testing * CBC W AUTO DIFFERENTIAL(Performed 03/29/2024) Performed for Preop testing * EKG 12-LEAD(Performed 03/29/2024) Performed for Preop testing * XR SHOULDER RIGHT 2VW OR MORE(Performed 03/21/2024) Performed for Status post reverse total replacement of right shoulder * Cherelle Block(Performed 11/18/2023) * ME REVISE MEDIAN N/CARPAL TUNNEL SURG(Performed 11/18/2023) Performed for Carpal tunnel syndrome of right wrist * XR CERVICAL SPINE 2 OR 3VW(Performed 10/13/2023) Performed for Neck pain * XR SHOULDER RIGHT 2VW OR MORE(Performed 10/13/2023) Performed for Status post reverse total replacement of right shoulder * EMG WITH NERVE CONDUCTION STUDY(Performed 10/11/2023) Performed for Bilateral carpal tunnel syndrome * CT UPPER EXT RIGHT WO CONTRAST(Performed 12/08/2022) Performed for Chronic right shoulder pain, Status post reverse total replacement of right shoulder,12/02/21, Anterior soft tissue impingement, right shoulder * C-REACTIVE PROTEIN(Performed 11/30/2022) * CBC W AUTO DIFFERENTIAL(Performed 11/30/2022) * ERYTHROCYTE SEDIMENTATION RATE(Performed 11/30/2022) * XR SHOULDER RIGHT 2VW OR MORE(Performed 11/25/2022) Performed for Chronic right shoulder pain * XR SHOULDER RIGHT 2VW OR MORE(Performed 05/27/2022) Performed for Chronic right shoulder pain * XR SHOULDER RIGHT 2VW OR MORE(Performed 02/24/2022) Performed for Status post reverse total replacement of right shoulder * XR SHOULDER RIGHT 2VW OR MORE(Performed 12/24/2021) Performed for Chronic right shoulder pain * IMAGING/RADIOLOGY/XRAY RESULTS ORDER(Performed 12/05/2021) * XR SHOULDER RIGHT 1VW(Performed 12/02/2021) Performed for Status post reverse total replacement of right shoulder * GLUCOSE - POINT OF CARE(Performed 12/02/2021) * GLUCOSE - POINT OF CARE(Performed 12/02/2021) * ENDOTRACHEAL TUBE NOTE(Performed 12/02/2021) * ME RECONSTR TOTAL SHOULDER IMPLANT(Performed 12/02/2021) * PERIPHERAL BLOCK(Performed 12/02/2021) * GLUCOSE - POINT OF CARE(Performed 12/02/2021) * CBC W AUTO DIFFERENTIAL(Performed 11/14/2021) Performed for Preoperative examination * MRI SHOULDER RIGHT WO CONTRAST(Performed 10/14/2021) Performed for Tear of right rotator cuff, unspecified tear extent, unspecified whether traumatic * XR CERVICAL SPINE 2 OR 3VW(Performed 10/07/2021) Performed for Neck pain, Numbness of right hand * XR SHOULDER BILAT 2VW OR MORE(Performed 10/07/2021) Performed for Primary osteoarthritis of both shoulders * XR SHOULDER BILAT 2VW OR MORE(Performed 05/17/2019) Performed for Chronic pain of both shoulders * XR HIP RIGHT 2VW OR MORE(Performed 11/11/2018) Performed for Status post right hip replacement * XR HIP RIGHT 2VW OR MORE(Performed 02/21/2018) Performed for Status post total replacement of right hip * XR HIP RIGHT 2VW OR MORE(Performed 12/17/2017) Performed for Status post total replacement of right hip * LAB RESULTS ORDER(Performed 12/17/2017) * CARDIAC EKG ORDER(Performed 12/01/2017) * GLUCOSE - POINT OF CARE(Performed 11/26/2017) * HGB HCT PANEL(Performed 11/26/2017) * GLUCOSE - POINT OF CARE(Performed 11/25/2017) * GLUCOSE - POINT OF CARE(Performed 11/25/2017) * GLUCOSE - POINT OF CARE(Performed 11/25/2017) * GLUCOSE - POINT OF CARE(Performed 11/25/2017) * FL SARAH SURGERY(Performed 11/25/2017) Performed for Arthralgia of hip, unspecified laterality * NEURAXIAL BLOCK(Performed 11/25/2017) * ARTHROPLASTY TOTAL HIP (ANTERIOR)(Performed 11/25/2017) * CBC W AUTO DIFFERENTIAL(Performed 11/25/2017) * GLUCOSE - POINT OF CARE(Performed 11/25/2017) * HEMOGLOBIN A1C(Performed 11/11/2017) Performed for Preop examination * CULTURE MSSA/MRSA(Performed 11/11/2017) Performed for Preop examination * XR HIP RIGHT 2VW OR MORE(Performed 11/01/2017) Performed for Right hip pain * XR HIP LEFT 2VW OR MORE(Performed 06/03/2015) Performed for History of arthroplasty of left hip * XR HIP LEFT 2VW OR MORE(Performed 04/01/2015) Performed for Left hip pain * HGB HCT PANEL(Performed 03/14/2015) * HGB HCT PANEL(Performed 03/13/2015) * ARTHROPLASTY TOTAL HIP (ANTERIOR)(Performed 03/12/2015) Performed for Osteoarthrosis, unspecified whether generalized or localized, pelvic region and thigh * OT EVAL AND TREAT(Performed 03/12/2015) * XR HIP LEFT INTRAOPERATIVE 1VW(Performed 03/12/2015) Performed for Hip pain, chronic, left * NEURAXIAL BLOCK(Performed 03/12/2015) * CBC W AUTO DIFFERENTIAL(Performed 02/26/2015) Performed for Preop examination * COMPREHENSIVE METABOLIC PANEL(Performed 02/26/2015) Performed for Preop examination * CULTURE MSSA/MRSA(Performed 02/26/2015) Performed for Preop examination * EKG 12-LEAD(Performed 02/26/2015) Performed for Preop examination * XR PELVIS W BILAT HIP 2VW(Performed 01/28/2015) Performed for Bilateral hip pain, Left hip pain Results * XR Shoulder Right 2Vw or More (08/07/2024 10:55 AM SAND MIXER) Only the most recent of8 resultswithin the time period is included. Narrative [facility] [address] - 08/07/2024 10:55 AM SAND MIXER Please see progress note in Epic for results. Abigail Rosas PA-C DIAGNOSTIC IMAGING O RDERABLES [facility] [address] * IMAGING RADIOLOGY XRAY RESULTS ORDER (05/12/2024 4:39 PM CDT) Only the most recent of2 resultswithin the time period is included. Anatomical Region Laterality Modality Other Narrative 05/12/2024 4:39 PM CDT Ordered by an unspecified provider. Scanned Document IMAGING * CULTURE TISSUE+GRAM STAIN (05/11/2024 1:04 PM CDT) Only the most recent of5 resultswithin the time period is included. Culture No growth AMADO 05/14/2024 11:31 PM CDT [facility] Gram Stain No organisms seen 024 11:31 PM CDT [facility] Gram Stain Rare Polymorphonuclear cells 05/14/2024 11:31 PM CDT [facility] Gram Stain Moderate Red blood cells 05/14/2024 11:31 PM CDT [facility] Microbiology ENTIRE SHOULDER REGION / Unknown 05/11/2024 1:04 PM CDT 05/11/2024 2:43 PM CDT Comment:Pre-op diagnosis: Right shoulder pain, unspecified chronicity [M25.511] Narrative [facility] - 05/14/2024 11:31 PM CDT Surgical Description: Right Shoulder Culture #5 Roxy Layton MD LAB - MICROBIOLOGY ORDERABLES Performing Organization Address [facility] de Phone Number [facility] [address] [place], [place] [address], [facility] [phone] * CULTURE ANAEROBE (05/11/2024 1:04 PM CDT) Only the most recent of5 resultswithin the time period is included. Culture No anaerobic organisms isolated AMADO 05/25/2024 12:34 PM CDT [facility] Microbiology ENTIRE SHOULDER REGION / Unknown 05/11/2024 1:04 PM CDT 05/11/2024 8:36 PM CDT Comment:Pre-op diagnosis: Right shoulder pain, unspecified chronicity [M25.511] Narrative [facility] - 05/25/2024 12:34 PM CDT Surgical Description: Right Shoulder Culture #5 Roxy Layton MD LAB - MICROBIOLOGY ORDERABLES Performing Organization Address City/[facility] Co de Phone Number [facility] [address] [place] [address], [facility] [phone] * ETT LINE PERFORMABLE (05/11/2024 12:06 PM CDT) Marilyn Desouza DO - 05/11/2024 12:06 PM CDT Miko Sanchez APRN-CRNA ? 05/11/2024 12:06 PM Endotracheal Tube Placement: ? Patient Location: OR. Procedure: intubation ([id number]) Procedure Section: ?? Sedation: under general anesthesia. Indications for Airway Management: ??anesthesia Induction: standard IV Patient Position: ??sniffing Mask Ventilation: easy. Blade Type: Beata Blade Size: 4 Laryngoscopy View: grade 2 (partial cords) Intubation Adjuncts: cricoid pressure Tube: endotracheal tube Placement: oral Tube type: cuff - inflated Tube Size (MM): 7 Depth of Insertion (CM): 21 Measured From: lips Cuff Inflated With: air Number of Attempts: 1. Placement Verified By: direct visualization, bilateral breath sounds, chest auscultation and CO2 monitor Staff Section ? Anesthesia Provider: Miko Sanchez APRN-CRNA, Performed the procedure Marilyn Martinez DO GENERAL ANESTHESIA O RDERABLES * Peripheral Nerve Block (05/11/2024 10:24 AM CDT) Marilyn Desouza DO - 05/11/2024 10:24 AM CDT Marilyn Martinez, DO ? 05/11/2024 10:26 AM Peripheral ??Nerve Block ?? Procedure: Peripheral Nerve Block Patient Location: ??Pre-op Preprocedure Section: ?? Indications: at surgeon's request, at patient's request, postop pain management and surgical anesthesia. Pre-anesthetic Checklist: Patient identified, IV Checked, Site examined and clear, Risks and benefits discussed, Surgical consent verified, Monitors and equipment, Time-out performed, Informed consent obtained, Pre-op evaluation done, Questions answered/anesthesia questions answered, Allergies reviewed and Removal hand/wrist jewelry Monitors: BP, Pulse Ox and EKG. Patient Condition: ??sedated, meaningful contact maintained throughout procedure Patient Position: sitting Patient Sedated? ??Yes ? Sedation Type: ??mild Procedure Section ?? Laterality: right Block Performed: ??Interscalene Prep: ??Chloraprep Strerile Field: gloves, mask and hat/cap Skin localized with: lidocaine (XYLOCAINE) 1 % injection - Infiltration 1 mL - 05/11/2024 10:21:00 AM Needle Type: ??Echogenic insulated Needle Gauge: ??22 Needle Length: ??50 mm Catheter?No Ultrasound Guided? ?? Yes ? Technique: ??in plane ? Visualization: ??Preliminary scan performed, Important anatomical structures identified, Needle tip visualized throughout the procedure, Target identified, No intraneural or intravascular puncture occurred, Ultrasound image in chart, Local visualized surrounding nerve on ultrasound and Hydrodissection utilized Injection was made incrementally with constant monitoring and aspirations every 5 mL's Injection Assessment: ?? Slow fractionated injection Block Agents or Additives used? Yes Block agents used: bupivacaine 0.5% - EPINEPHrine 1:200,000 (PF) injection - Perineural 15 mL - 05/11/2024 10:21:00 AM Procedure Tolerance: tolerated well, performed while the patient was sedated and no immediate complications Assessment: completed Staff Section ? Anesthesia Provider: Marilyn Martinez DO, Performed the procedure Marilyn Martinez DO GENERAL ANESTHESIA O RDERABLES * DRAW AND HOLD GREEN (03/29/2024 9:55 AM CDT) Specimen Hold Specimen hold completed. 03/29/2024 11:32 AM CDT [facility] Blood BLOOD SPECIMEN / Unknown Venipuncture / Unknown 03/29/2024 9:55 AM CDT 03/29/2024 10:02 AM CDT Roseanne Aguilar APRN-TOMEKA LAB - CHEMISTRY O RDERABLES [facility] [address] [place] [address] * (ABNORMAL) CBC W AUTO DIFFERENTIAL (03/29/2024 9:55 AM CDT) Only the most recent of5 resultswithin the time period is included. WBC 5.9 4.0 - 10.7 x10E9/L 03/29/2024 10:11 AM CDT [facility] RBC Count 5.20 4.30 - 5.80 x10E12/L 03/29/2024 10:11 AM CDT [facility] Hemoglobin 15.9 13.3 - 17.5 g/dL 03/29/2024 10:11 AM CDT [facility] Hematocrit 47.1 38.7 - 51.1 % 03/29/2024 10:11 AM CDT [facility] MCV 90.6 80.0 - 98.0 fL 03/29/2024 10:11 AM CDT [facility] MCH 30.6 26.7 - 33.6 pg 03/29/2024 10:11 AM CDT [facility] MCHC 33.8 31.7 - 36.3 g/dL 03/29/2024 10:11 AM CDT [facility] RDW-CV 12.3 11.3 - 14.8 % 03/29/2024 10:11 AM CDT [facility] Platelet Count 207 150 - 420 x10E9/L 03/29/2024 10:11 AM CDT [facility] MPV 10.0 7.8 - 11.4 fL 03/29/2024 10:11 AM CDT [facility] Neutrophil % 63.9 41.0 - 74.0 % 03/29/2024 10:11 AM CDT [facility] Lymphocyte % 21.1 17.0 - 47.0 % 03/29/2024 10:11 AM CDT [facility] Monocyte % 9.3 3.0 - 11.0 % 03/29/2024 10:11 AM CDT [facility] Eosinophil % 2.9 0.0 - 7.0 % 03/29/2024 10:11 AM CDT [facility] Basophil % 1.4 0.0 - 1.6 % 03/29/2024 10:11 AM CDT [facility] Immature Granulocytes % 1.4(H) 0.0 - 1.0 % 03/29/2024 10:11 AM CDT [facility] Neutrophil Absolute 3.77 1.60 - 7.50 x10E9/L 03/29/2024 10:11 AM CDT [facility] Lymphocyte Absolute 1.24 1.00 - 4.40 x10E9/L 03/29/2024 10:11 AM CDT [facility] Monocyte Absolute 0.55 0.15 - 1.00 x10E9/L 03/29/2024 10:11 AM CDT [facility] Eosinophil Absolute 0.17 0.00 - 0.60 x10E9/L 03/29/2024 10:11 AM CDT [facility] Basophil Absolute 0.08 0.00 - 0.13 x10E9/L 03/29/2024 10:11 AM CDT [facility] Blood BLOOD SPECIMEN / Unknown Venipuncture / Unknown 03/29/2024 9:55 AM CDT 03/29/2024 10:02 AM CDT Roseanne Aguilar FINANCIAL OPERATIONS ANALYST-STAMPER BLOCKER LAB - HEMATOLOGY ORDERABLES Performing Organization Address City/[facility]/ZIP Co de Phone Number [facility] [address] [place], [place] [id number] * EKG 12-LEAD (03/29/2024 9:28 AM CDT) Only the most recent of2 resultswithin the time period is included. Ventricular Rate 80 BPM [facility] Atrial Rate 80 BPM [facility] P-R Interval 174 ms [facility] QRS Duration ms 100 ms [facility] Q-T Interval ms 364 ms [facility] QTC Calculation (Bezet) 419 ms [facility] Calculated P [place] 35 degrees [facility] Calculated R [place] -8 degrees [facility] Calculated T [place] 57 degrees [facility] Interpretation EKG Normal sinus rhythm Cannot rule out Anterior infarct , age undetermined Abnormal ECG Confirmed by MARCELLA CASTILLO MD ([id number]) on 03/29/2024 8:42:43 PM [facility] 03/29/2024 9:28 AM CDT 03/29/2024 8:42 PM CDT Brianne Dumont DO ECG ORDERABLES Performing Organization Address City/[facility]/ZIP Co de Phone Number [facility] * ANESTHESIA BLOCK PERF (11/18/2023 11:37 AM CDT) Narrative Ramon Conde APRN-CRNA - 11/18/2023 11:37 AM CDT Ramon Conde APRN-CRNA ? 11/18/2023 11:40 AM Struthers Block: ? Patient Location: OR. Procedure: ??Struthers Block Pre Procedure Section: ?? Indications: ??surgical anesthesia Pre-Anesthetic Checklist: ??Patient identified, Site examined, Surgical consent verified, Pre-op evaluation done, Informed consent obtained, Allergies reviewed, IV Checked, Risks and benefits discussed, Monitors and equipment, Time-out performed and Questions answered/anesthesia questions answered Patient Position: ??supine Laterality: ??right Monitors: ??BP, continuous pluse ox, EKG and End tidal CO2 Patient Sedated? ??No (see MAR) Block IV already in place: ??yes Gauge: ??22 Procedure: ? Tourniquet: ??single Inflation Pressure: ??275 Arm Exsanguinated: ??yes Tourniquet Inflated: ??yes Pulses Checked: ??yes Drug Injected: ??yes Procedure Tolerance: ??tolerated well ?? performed while the patient was sedated Procedure Start Time: 11/18/2023 11:25 AM. Procedure End Time: 11/18/2023 11:28 AM. Procedure Total Time: 3 ??minutes. Staff Section ? Anesthesia Provider: Ramon Conde APRN-CRNA ? Provider #1: Kinza Allen, Performed the procedure. Additional Comments: JOSEF JACINTO did Struthers Block. No complications.. Marilyn Martinez DO GENERAL ANESTHESIA O RDERABLES * XR CERVICAL SPINE 2 OR 3VW (10/13/2023 2:17 PM SAND MIXER) Only the most recent of2 resultswithin the time period is included. Narrative [facility] [address] - 10/13/2023 2:17 PM SAND MIXER Please see progress note in Epic for results. Roxy Layton MD DIAGNOSTIC IMAGING ORDERABLES [facility] [address] * EMG WITH NERVE CONDUCTION STUDY (10/11/2023 11:30 AM SAND MIXER) Narrative Celestine Pettit MD - 10/11/2023 11:30 AM SAND MIXER Celestine Pettit MD ? 10/11/2023 11:30 AM [facility] [facility] [address] [address] [place] [address] Test Date: ??10/11/2023 Patient: Joe Loja : 1955 Physician: Celestine Pettit MD Sex: Male Height: 5' 0 Ref Phys: Aurelio Frederick MD ID#: [id number] Weight: 220 lbs. ?? Patient Complaints: Patient is a 68 year old male who was referred to rule out carpal tunnel syndrome. Patient presents with complaints of pain, numbness, weakness, and tingling in the bilateral hands. ?? Symptoms have been present for 3 years. History right elbow surgery. NCV Findings: ? ? Evaluation of the left median motor and the right median motor nerves showed prolonged distal onset latency (L5.0, R5.9 ms). ? ? The left median/ulnar (palm) comparison and the right median/ulnar (palm) comparison nerves showed prolonged distal peak latency (Median Palm, L3.5, R5.4 ms). ? ? All remaining nerves (as indicated in the following tables) were within normal limits. ? ? Impression: Bilateral CTS Celestine Pettit MD Nerve Conduction Studies Anti Sensory Summary Table Stim Site NR Peak (ms) Norm Peak (ms) P-T Amp (??V) Norm P-T Amp Site1 Site2 Delta-P (ms) Dist (cm) Jer (m/s) Norm Jer (m/s) Left Radial Anti Sensory (Base 1st Digit) Wrist ?2.6 <3.1 12.3 ??Wrist Base 1st Digit 2.6 0.0 ?? Site 2 ?2.6 ??9.7 ? Right Radial Anti Sensory (Base 1st Digit) Wrist ?2.6 <3.1 15.3 ??Wrist Base 1st Digit 2.6 0.0 ?? Site 2 ?2.6 ??15.8 ? Motor Summary Table Stim Site NR Onset (ms) Norm Onset (ms) O-P Amp (mV) Norm O-P Amp Amp (Prev) (%) Site1 Site2 Delta-0 (ms) Dist (cm) Jer (m/s) Norm Jer (m/s) Left Median Motor (Abd Poll Brev) Wrist ?*5.0 <4.4 5.5 >5 100.0 Elbow Wrist 4.5 26.0 58 >50 Elbow ?9.5 ??4.8 ??87.3 ? Right Median Motor (Abd Poll Brev) Wrist ?*5.9 <4.4 6.7 >5 100.0 Elbow Wrist 4.6 26.0 57 >50 Elbow ?10.5 ??6.2 ??92.5 ? Left Ulnar Motor (Abd Dig Minimi) Wrist ?2.7 <4.2 10.1 >3 100.0 B Elbow Wrist 3.4 21.0 62 >53 B Elbow ?6.1 ??10.0 ??99.0 A Elbow B Elbow 1.9 10.0 53 ?? A Elbow ?8.0 ??9.6 ??96.0 ? Right Ulnar Motor (Abd Dig Minimi) Wrist ?2.9 <4.2 9.1 >3 100.0 B Elbow Wrist 3.4 21.0 62 >53 B Elbow ?6.3 ??8.6 ??94.5 A Elbow B Elbow 1.5 10.0 67 ?? A Elbow ?7.8 ??8.4 ??97.7 ? Comparison Summary Table Stim Site NR Peak (ms) Norm Peak (ms) P-T Amp (??V) Site1 Site2 Delta-P (ms) Norm Delta (ms) Left Median/Ulnar Palm Comparison (Wrist - 8cm) Median Palm ?*3.5 <2.2 38.4 Median Palm Ulnar Palm 1.7 ?? Ulnar Palm ?1.8 <2.2 25.1 ? Right Median/Ulnar Palm Comparison (Wrist - 8cm) Median Palm ?*5.4 <2.2 20.3 Median Palm Ulnar Palm 3.9 ?? Ulnar Palm ?1.5 <2.2 15.8 ? F Wave Studies NR F-Lat (ms) Lat Norm (ms) L-R F-Lat (ms) L-R Lat Norm Left Median (Mrkrs) (Abd Poll Brev) ?? *32.82 <26.2 1.40 <2.2 Right Median (Mrkrs) (Abd Poll Brev) ?? *34.22 <26.2 1.40 <2.2 Left Ulnar (Mrkrs) (Abd Dig Min) ?? *29.26 <26.1 0.00 <2.5 Right Ulnar (Mrkrs) (Abd Dig Min) ?? *29.26 <26.1 0.00 <2.5 Nerve Conduction Studies Anti Sensory Left/Right Comparison Stim Site L Lat (ms) R Lat (ms) L-R Lat (ms) L Amp (??V) R Amp (??V) L-R Amp (%) Site1 Site2 L Jer (m/s) R Jer (m/s) L-R Jer (m/s) Radial Anti Sensory (Base 1st Digit) Wrist 2.6 2.6 0.0 12.3 15.3 19.6 Wrist Base 1st Digit ? Site 2 2.6 2.6 0.0 9.7 15.8 38.6 ? Motor Left/Right Comparison Stim Site L Lat (ms) R Lat (ms) L-R Lat (ms) L Amp (mV) R Amp (mV) L-R Amp (%) Site1 Site2 L Jer (m/s) R Jer (m/s) L-R Jer (m/s) Median Motor (Abd Poll Brev) Wrist *5.0 *5.9 *0.9 5.5 6.7 17.9 Elbow Wrist 58 57 1 Elbow 9.5 10.5 1.0 4.8 6.2 22.6 ? Ulnar Motor (Abd Dig Minimi) Wrist 2.7 2.9 0.2 10.1 9.1 9.9 B Elbow Wrist 62 62 0 B Elbow 6.1 6.3 0.2 10.0 8.6 14.0 A Elbow B Elbow 53 67 14 A Elbow 8.0 7.8 0.2 9.6 8.4 12.5 ? Comparison Left/Right Comparison Stim Site L Lat (ms) R Lat (ms) L-R Lat (ms) L Amp (??V) R Amp (??V) L-R Amp (%) Median/Ulnar Palm Comparison (Wrist - 8cm) Median Palm *3.5 *5.4 1.9 38.4 20.3 47.1 Ulnar Palm 1.8 1.5 0.3 25.1 15.8 37.1 Waveforms: ? Aurelio Frederick MD NEUROLOGY ORDERABLES * CT UPPER EXT RIGHT WO CONTRAST (12/08/2022 1:34 PM CDT) Anatomical Region Laterality Modality Upper Extremity Computed Tomogra phy 12/08/2022 3:56 PM CDT Impressions 12/08/2022 4:51 PM CDT IMPRESSION: NO EVIDENCE OF ACUTE HARDWARE COMPLICATION. Edited by Faith Cabrera on 12/08/2022 4:12 PM > Interpreting Provider: Barrington Chase MD on 12/08/2022 4:51 PM Narrative 12/08/2022 4:51 PM CDT PROCEDURE: ??CT UPPER EXT RIGHT WO CONTRAST DATE/TIME OF EXAM: ??12/08/2022 1:34 PM CLINICAL INDICATION: Chronic worsening right shoulder pain and limited range of motion. Anterior impingement of the right shoulder. COMPARISON: Right shoulder x-ray series 11/25/2022. TECHNIQUE: CT of the right shoulder was performed utilizing standard protocol. Metal artifact reduction techniques were employed. CT dose reduction technique was used, including Automated Exposure Control. FINDINGS: Previous reverse total shoulder prosthesis placement. No bone-metal interface lucencies. Anatomic alignment of the prosthesis. No evidence of scapular notching. Normal shape and morphology of the acromion process. No evidence of an acromial stress fracture. Anatomic alignment of the acromioclavicular joint. Mild hypertrophy at the acromioclavicular joint. No joint effusion. No soft tissue swelling. No fluid collections. No solid or cystic masses. Procedure Note Barrington Chase MD - 12/08/2022 PROCEDURE: CT UPPER EXT RIGHT WO CONTRAST DATE/TIME OF EXAM: 12/08/2022 1:34 PM CLINICAL INDICATION: Chronic worsening right shoulder pain and limited range of motion. Anterior impingement of the right shoulder. COMPARISON: Right shoulder x-ray series 11/25/2022. TECHNIQUE: CT of the right shoulder was performed utilizing standard protocol.Metal artifact reduction techniques were employed. CT dose reduction technique was used, including Automated ExposureControl. FINDINGS: Previous reverse total shoulder prosthesis placement. No bone-metal interface lucencies. Anatomic alignment of the prosthesis. No evidence of scapular notching. Normal shape and morphology of the acromion process. No evidence of an acromial stress fracture. Anatomic alignment of the acromioclavicular joint. Mild hypertrophy at the acromioclavicular joint. No joint effusion. No soft tissue swelling. No fluid collections. No solid or cystic masses. IMPRESSION: NO EVIDENCE OF ACUTE HARDWARE COMPLICATION. Edited by Faith Cabrera on 12/08/2022 4:12 PM > Interpreting Provider: Barrington Chase MD on 12/08/2022 4:[address] MD [address] ORDERABLES * C-REACTIVE PROTEIN (11/30/2022 8:04 AM CDT) C-Reactive Protein 4.5 <8.0 mg/L [facility] Comment: REPORT COMMENT: FASTING:NO Test Performed at: [facility] [facility] [address] [place], [place] ??[id number] ILENE AREVALO MD 11/30/2022 8:04 AM CDT 11/30/2022 8:06 AM CDT Roxy Layton MD LAB - CHEMISTRY ORD ERABLES [facility] [address] [place] [address] * ERYTHROCYTE SEDIMENTATION RATE (11/30/2022 8:04 AM CDT) Erythrocyte Sedimentation Rate Westergren 2 < OR = 20 mm/h [facility] Comment: Test Performed at: [facility] [employer] [id number] [place] [address] ??[id number] ILENE AREVALO MD 11/30/2022 8:04 AM CDT 11/30/2022 8:06 AM CDT Roxy Layton MD LAB - HEMATOLOGY OR DERABLES [facility] [address] [place] [address] * XR SHOULDER 1 VW RIGHT (12/02/2021 12:11 PM CDT) Anatomical Region Laterality Modality Upper Extremity Radiographic Sheela ging 12/02/2021 12:1 4 PM CDT Impressions 12/02/2021 1:04 PM CDT POSTOPERATIVE CHANGES. Edited by Lindy Salamanca on 12/02/2021 12:26 PM *Reading Radiologist: Bradley Izaguirre on 12/02/2021 at 1:04 PM Narrative 12/02/2021 1:04 PM CDT RIGHT SHOULDER ONE VIEW INDICATION: Right shoulder pain. FINDINGS: Single frontal view of the right shoulder compared to prior October 07, 2021 shows right shoulder prosthesis in appropriate alignment. There are degenerative changes of the acromioclavicular joint. No fracture or hardware complication is present. Procedure Note Bradley Izaguirre MD - 12/02/2021 RIGHT SHOULDER ONE VIEW INDICATION: Right shoulder pain. FINDINGS: Single frontal view of the right shoulder compared to prior October 07, 2021 shows right shoulder prosthesis in appropriate alignment. There are degenerative changes of the acromioclavicular joint. No fracture or hardware complication is present. IMPRESSION POSTOPERATIVE CHANGES. Edited by Lindy Salamanca on 12/02/2021 12:26 PM *Reading Radiologist: Bradley Izaguirre on 12/02/2021 at 1:04 PM Roxy Layton MD DIAGNOSTIC IMAGING ORDERABLES * (ABNORMAL) GLUCOSE - POINT OF CARE (12/02/2021 11:50 AM CDT) Only the most recent of9 resultswithin the time period is included. Glucose WB/POC 111(H) 70 - 106 mg/dL 12/02/2021 11:51 AM CDT [facility] Specimen Type Cap Fingerstick 2021 11:51 AM CDT [facility] Blood BLOOD SPECIMEN / Unknown 12/02/2021 11:50 AM CDT 12/02/2021 11:51 AM CDT Roxy Layton MD LAB - POINT OF CARE ORDERABLES [facility] [address] [place] [address] * ETT LINE PERFORMABLE (12/02/2021 10:33 AM CDT) Narrative Shae Lambert APRN-CRNA - 12/02/2021 10:33 AM CDT Shae Lambert APRN-CRNA ? 12/02/2021 10:33 AM Endotracheal Tube Placement: ? Patient Location: OR. Intubation Event Date/Time: ??12/02/2021 10:11 AM Procedure: intubation ([id number]). Procedure Section: ?? Sedation: under general anesthesia. Indications for Airway Management: ??anesthesia Induction: standard IV Patient Position: ??sniffing and supine Mask Ventilation: easy with oral airway. Blade Type: Beata Blade Size: 4 Laryngoscopy View: grade 2 (partial cords) Intubation Adjuncts: cricoid pressure and stylet Tube: endotracheal tube Placement: oral Tube type: cuff - inflated Tube Size (MM): 8 Depth of Insertion (CM): 24 Measured From: teeth Cuff Inflated With: air Number of Attempts: 1. Placement Verified By: direct visualization, chest auscultation and CO2 monitor Tube secured with: ??adhesive tape. Dentition unchanged? ??Yes Difficult Airway? ??No. Procedure Start Time: 12/02/2021 10:11 AM. Staff Section ? Anesthesia Provider: Shae Lambert APRN-CRNA ? Provider #1: Bradley Gary RN, Performed the procedure. Jose Wilson MD GENERAL ANESTHESIA O RDERABLES * Peripheral Nerve Block (12/02/2021 9:07 AM CDT) Narrative Jose Wilson MD - 12/02/2021 9:07 AM CDT Jose Wilson MD ? 12/02/2021 ??9:09 AM Peripheral ??Nerve Block ?? Procedure: Peripheral Nerve Block Patient Location: ??Pre-op Preprocedure Section: ?? Indications: at surgeon's request and postop pain management. Pre-anesthetic Checklist: Patient identified, IV Checked, Site examined and clear, Risks and benefits discussed, Surgical consent verified, Monitors and equipment, Time-out performed, Informed consent obtained, Pre-op evaluation done, Questions answered/anesthesia questions answered, Allergies reviewed and Removal hand/wrist jewelry Monitors: BP, EKG and Pulse Ox. Patient Condition: ??sedated, meaningful contact maintained throughout procedure Patient Position: sitting Patient Sedated? ??Yes ? Sedation Type: ??mild ? Sedation Agents: ??fentaNYL (PF) (SUBLIMAZE) injection, 100 mcg midazolam (VERSED) injection, 2 mg Procedure Section ?? Laterality: right Block Performed: ??interscalene Prep: ??Chloraprep Strerile Field: gloves, mask and hat/cap Skin localized with: lidocaine (XYLOCAINE) 1 % injection, 0.3 mL Needle Type: ??Echogenic insultaed and short-bevel Needle Gauge: ??22 Needle Length: ??50 mm Needle Depth: ??4.5 cm Catheter?No Ultrasound Guided? ?? Yes ? Technique: ??in plane ? Visualization: ??Preliminary scan performed, Important anatomical structures identified, Needle tip visualized throughout the procedure, Target identified, No intraneural or intravascular puncture occurred, Ultrasound image in chart, Local visualized surrounding nerve on ultrasound and Hydrodissection utilized Injection was made incrementally with constant monitoring and aspirations every 5 mL's Injection Assessment: ?? Slow fractionated injection Block Agents or Additives used? Yes Block agents used: bupivacaine liposome (EXPAREL) 1.3 % injection, 10 mL bupivacaine PF (MARCAINE PF) 0.5 % injection, 25 mL Procedure Tolerance: tolerated well Assessment: completed Procedure Start Time: 12/02/2021 7:56 AM. Procedure End Time: 12/02/2021 8:04 AM. Procedure Total Time: 8 ??minutes. Staff Section ? Anesthesia Provider: Jose Wilson MD, Performed the procedure Jose Wilson MD GENERAL ANESTHESIA O RDERABLES * MRI SHOULDER RIGHT WO CONTRAST (10/14/2021) Anatomical Region Laterality Modality Upper Extremity Magnetic Resonan ce Abigail Rosas PA-C MR ORDERABLES * XR SHOULDER BILAT 2VW (10/07/2021 9:24 AM SAND MIXER) Only the most recent of2 resultswithin the time period is included. Anatomical Region Laterality Modality Upper Extremity Computed Radiogr aphy Narrative 10/07/2021 9:23 AM SAND MIXER Lisa Bradley RT(R) ? 10/07/2021 ??3:22 PM Three views of the right shoulder(s) including AP, axillary lateral and outlet radiographs reveal preserved glenohumeral and preserved acromiohumeral distance with a Type 2 acromion. No bony abnormalities are otherwise noted. ? Roxy Layton MD DIAGNOSTIC IMAGING ORDERABLES * XR HIP RIGHT 2VW OR MORE (11/11/2018 12:14 PM CDT) Only the most recent of4 resultswithin the time period is included. Anatomical Region Laterality Modality Pelvis, Lower Extremity Computed Radiography Narrative 11/11/2018 1:39 PM CDT Lisa Bradley RT(R) ? 11/11/2018 ??1:39 PM See progress notes for results Tristen Soares IV, MD DIAGNOSTIC IMAGING O RDERABLES * LAB RESULTS ORDER (12/17/2017 1:15 AM CDT) Narrative 12/17/2017 1:15 AM CDT Ordered by an unspecified provider. Scanned Document LAB - THERAPEUTIC DR MIKEY MONITORING ORDERABLES * CARDIAC EKG ORDER (12/01/2017 12:06 AM CDT) Narrative 12/01/2017 12:06 AM CDT Ordered by an unspecified provider. Scanned Document CARDIAC SERVICES ORD ERABLES * HGB HCT PANEL (11/26/2017 4:30 AM CDT) Only the most recent of3 resultswithin the time period is included. Hemoglobin 12.2 12.0 - 17.6 gm/dL 11/26/2017 5:02 AM CDT [facility] Hematocrit 37.4 35.2 - 51.7 % 11/26/2017 5:02 AM CDT [facility] Blood BLOOD SPECIMEN / Unknown Venipuncture / Unknown 11/26/2017 4:30 AM CDT 11/26/2017 4:48 AM CDT Tristen Soarse IV, MD LAB - HEMATOLOGY ORD ERABLES [facility] [address] [place] [id number] * FL SARAH SURGERY (11/25/2017 10:24 AM CDT) Anatomical Region Laterality Modality Radiographic Sheela ging 11/25/2017 10:3 5 AM CDT Narrative 11/25/2017 10:25 AM CDT INTRAOPERATIVE FLUOROSCOPY RIGHT HIP HISTORY: Right hip replacement aftercare. FINDINGS: Total fluoroscopy time 22 seconds. No radiologist was present. 7 images are submitted which show sequential changes of a total right hip arthroplasty without fracture, malalignment or hardware failure. Edited by Faith Cabrera on 11/25/2017 10:40 AM Procedure Note Ray Mckeon MD - 11/25/2017 INTRAOPERATIVE FLUOROSCOPY RIGHT HIP HISTORY: Right hip replacement aftercare. FINDINGS: Total fluoroscopy time 22 seconds. No radiologist was present. 7 images are submitted which show sequential changes of a total right hip arthroplasty without fracture, malalignment or hardware failure. Edited by Faith Cabrera on 11/25/2017 10:40 AM Tristen Soares IV, MD FLUOROSCOPY ORDERABL ES * HEMOGLOBIN A1C (11/11/2017 2:53 PM CDT) Hemoglobin A1c 5.8 4.2 - 6.3 % 11/11/2017 5:10 PM CDT [facility] Estimated Average Glucose 120 mg/dL 11/11/2017 5:10 PM CDT [facility] Whole Blood BLOOD SPECIMEN WITH EDTA / Unknown Venipuncture / Unknown 11/11/2017 2:53 PM CDT 11/11/2017 3:53 PM CDT Tristen Soares IV, MD LAB - CHEMISTRY BOOGIE DANIELS [facility] [address] [place] [address] * CULTURE MSSA/MRSA (11/11/2017 2:47 PM CDT) Only the most recent of2 resultswithin the time period is included. Pathologist [facility] Culture Negative for Staphylococcus aureus (MRSA/MSSA) AMADO 11/13/2017 6:44 AM CDT [facility] Microbiology SPECIMEN FROM NASAL FOSSAE / Unknown Collection / Unknown 11/11/2017 2:47 PM CDT 11/11/2017 3:52 PM CDT Tristen Soares IV, MD LAB - MICROBIOLOGY O DAWN Performing Organization Address City/[facility]/ZIP Co de Phone Number [facility]CROBIOLOGY [address] [place] [address], [facility] [phone] * XR HIP 2+ VW LEFT (06/03/2015 1:37 PM CDT) Only the most recent of2 resultswithin the time period is included. Anatomical Region Laterality Modality Pelvis, Lower Extremity Radiogra phic Imaging Narrative 06/07/2015 9:32 AM CDT Lisa Bradley, RT(R) ? 06/07/2015 ??9:32 AM See progress notes for results Tristen Soares IV, MD DIAGNOSTIC IMAGING O DAWN * XR HIP LEFT INTRAOP (03/12/2015 10:40 AM CDT) Anatomical Region Laterality Modality Pelvis, Lower Extremity Radiogra phic Imaging 03/12/2015 2:54 PM CDT Narrative 03/12/2015 2:54 PM CDT 2 views of the left hip History: Left hip pain Findings: Multiple intraoperative images demonstrate progressive left total hip arthroplasty. No periprosthetic fracture or dislocation is seen. Fluoroscopy time was 41 seconds. Procedure Note Fidelina Cody MD - 03/12/2015 2 views of the left hip History: Left hip pain Findings: Multiple intraoperative images demonstrate progressive left total hip arthroplasty. No periprosthetic fracture or dislocation is seen. Fluoroscopy time was 41 seconds. Tristen Soares IV, MD DIAGNOSTIC IMAGING O RDERABLES * NEURAXIAL BLOCK (03/12/2015 9:23 AM CDT) Narrative Fidelina Cai APRN-CRNA - 03/12/2015 9:23 AM CDT KATHERINE Gilman ? 03/12/2015 ??9:23 AM NEURAXIAL BLOCK Patient Location: ??OR Pre Procedure Indication: ??surgical anesthesia Anticoagulation /Antithrombosis Status Confirmed: Yes Preanesthetic Checklist: ??patient identified, IV checked, site marked, risks and benefits discussed, surgical consent verified, monitors and equipment checked, pre-op evaluation done, timeout performed, informed consent obtained and questions answered / anesthesia plan accepted Monitors: ??BP and Pulse Ox Patient Condition: ??awake Patient Position: ??sitting Procedure Block Performed: ??spinal Prep: ??Betadine Sterile Field: ??sterile gloves, sterile field established, cap/hat and mask Approach: ??midline Skin Numbed with: ??lidocaine 1% Spinal Needle Type: ??Quincke Needle Gauge: ??22 G Placement Site: ??L3-4 Number of Attempts: ??1 CSF: ??free flow and aspiration before injection Events CSF return injection not painful no paresthesia Degree of Difficulty: ??none Position Post Procedure: ??supine Vital signs monitored and stable throughout. ??See Anesthesia Intraop record for details. Block Start Time: ??03/12/2015 8:44 AM Block Performed by: ??Trell ANGEL Fidelina J Maul FINANCIAL OPERATIONS ANALYST-BOATBUILDER APPRENTICE WOOD GENERAL ANESTHE HECTOR ORDERABLES * COMPREHENSIVE METABOLIC PANEL (02/26/2015 10:26 AM CDT) Glucose 95 74 - 106 mg/dL 02/26/2015 11:12 AM CDT [facility] Sodium 138 136 - 145 mmol/L 02/26/2015 11:12 AM CDT [facility] Potassium 4.0 3.5 - 5.1 mmol/L 02/26/2015 11:12 AM CDT [facility] Chloride 102 98 - 107 mmol/L 02/26/2015 11:12 AM CDT [facility] CO2 27 22 - 31 mmol/L 02/26/2015 11:12 AM CDT [facility] Calcium 8.6 8.5 - 10.1 mg/dL 02/26/2015 11:12 AM [facility] Anion Gap 9 5 - 15 mmol/L 02/26/2015 11:12 AM CDT [facility] BUN 11 7 - 21 mg/dL 02/26/2015 11:12 AM T [facility] Creatinine 0.72 0.50 - 1.30 mg/dL 02/26/2015 11:12 AM [facility] Alkaline Phosphatase 50 38 - 126 U/L 02/26/2015 11:12 AM CDT [facility] ALT 57 12 - 78 U/L 02/26/2015 11:12 AM CDT [facility] AST 37 5 - 40 U/L 02/26/2015 11:12 AM CDT [facility] Protein Total 7.7 6.4 - 8.2 gm/dL 02/26/2015 11:12 AM [facility] Albumin 3.9 3.4 - 5.0 gm/dL 02/26/2015 11:12 AM T [facility] Bilirubin Total 0.6 0.2 - 1.0 mg/dL 02/26/2015 11:12 AM CDT [facility] eGFR by MDRD >60 >60 mL/min/1.7 3m2 02/26/2015 11:12 AM CDT [facility] eGFR by MDRD >60 >60 mL/min/1.7 3m2 02/26/2015 11:12 AM [facility] Blood BLOOD SPECIMEN / Unknown 02/26/2015 10:26 AM CDT 02/26/2015 10:50 AM CDT Tristen Soares IV, MD LAB - CHEMISTRY BOOGIE DANIELS [facility] Organization Address City/State/ZIP Co de Phone Number [facility] [address] [place] [address] * XR HIPS BILAT 2VWS W PELVIS (01/28/2015 10:31 AM CDT) Anatomical Region Laterality Modality Pelvis, Lower Extremity Radiogra phic Imaging Narrative 02/03/2015 1:58 PM CDT Lisa Bradley, RT(R) ? 02/03/2015 ??1:58 PM See progress notes for results Tristen Soares IV, MD DIAGNOSTIC IMAGING O RDERABLES Care Teams Job Change Crew Member Relationship Specialty Start Date End Date Nikki Corado MD [address] [place] [address] PCP - General Family Medicine 11/11/17 [place] [address] [facility] [address] [place] [address] Orthopedic Surgery 01/28/15
--- OUTSIDE RECORDS SUMMARY | 2024-09-06 16:02 | XMS_ITS | Clinical Summary ---
Author Organization [facility] [employer] Address [address] [place] [address] Care Team Providers Care Technical Cable Jointer Name Role Phone Fany SCRUGGS MD, Tristen Unavailable Nikki Corado MD Primary Care Provider [phone] Source Comments [facility] [employer],non-owned Affiliates and Associated Physician Practices is amultiple site organization consisting of ambulatory clinics and hospital sitesin [place], [place], [place] and [place]. This disclosure is being madepursuant to the Care Everywhere program and may not contain all information available regarding this patient. Last updated 18.[facility] [employer] Allergies No known active allergies Medications * Be aware that medications may not be up to date on this document. Alwaysverify current medications with the patient. Medication Sig Dispensed Refills Start Date End Date Status Odessa 3-6-9 Fatty Acids (TRIPLE OMEGA-3-6-9 PO) Take by mouth at bedtime Active Turmeric 450 MG CAPS Take 2 Caps by mouth at bedtime Active Lecithin 1200 MG CAPS Take by mouth at bedtime 1325mg at bedtime Active simvastatin (ZOCOR) 20 MG tablet TAKE 1 TABLET BY MOUTH ONCE DAILY IN THE EVENING 04/30/2019 Active Multiple Vitamin (MULTIVITAMIN ADULT PO) Active ELDERBERRY PO Take 50 mg by mouth once daily Active Multiple Vitamins-Minerals (ZINC PO) Take 50 mg by mouth once daily Active CRANBERRY PO Take 15,000 mg by mouth Active Ascorbic Acid (VITAMIN C PO) Active ibuprofen (Motrin) 800 MG tablet Take 1 (one) tablet by mouth 3 times daily as needed with food for Pain 30 tablet 1 05/11/2024 Active nystatin (Mycostatin) 815041 UNIT/GM cream Apply to affected area 2 times daily Right axilla/ armpit as needed for rash or itching. 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 Orthopedics [address] [place] [phone] Abigail Rosas PA-C S/P arthroscopy of right shoulder, conjoint tendon release (Primary Dx); Chronic right shoulder pain; Status post reverse total replacement of right shoulder 08/07/2024 10:55 AM TEST RACK OPERATOR Ancillary Procedure [facility] Orthopedics - Radiology [address] [place] [phone] Abigail Rosas PA-C Chronic right shoulder pain 06/21/2024 1:15 PM TEST RACK OPERATOR Office Visit [facility] Orthopedics [address] [place] [address], [address] [phone] Nikki Junior PA-C S/P arthroscopy of right shoulder, conjoint tendon release (Primary Dx); Chronic right shoulder pain; Status post reverse total replacement of right shoulder; Trapezius muscle spasm from Last 3 Months Social History Tobacco Use Types Packs/Day Years [...] Mass Index 39.06 05/11/2024 9:20 AM CDT Plan of Treatment Upcoming Encounters Date Type Department Care Team (Late st Contact Info) Description 11/06/2024 11:15 AM CDT Office Visit [facility] Orthopedics [address], [address] [place] [address] Abigail Rosas PA-C [address] [place] [address] Health Maintenance Due Date Last Done Comments COLOGUARD (AGES 45-75) - COLON CA SCREENING 1955 COLON MONITORING 1955 COLONOSCOPY - COLON CA SCREENING 1955 CT COLONOGRAPHY - COLON CA SCREENING 1955 Colorectal Cancer Screening 1955 FIT - COLON CA SCREENING 1955 FLEX SIG - COLON CA SCREENING 1955 MEDICARE AWV ? 12 MONTHS 1955 HEPATITIS C SCREENING 09/19/1973 DTAP/TDAP/TD VACCINES (1 - Tdap) 1974 PNEUMOCOCCAL VACCINE 50+ (1 of 1 - PCV) 2005 ZOSTER VACCINE (1 of 2) 2005 COVID-19 VACCINE (3 - season) 2024 07/25/2021, 07/04/2021 INFLUENZA VACCINE (#1) 2024 08/11/2019, 2017 DEPRESSION SCREENING 08/09/2024 06/21/2024 SCREENING FOR DIABETES 12/02/2024 2, 12/02/2021, 12/02/2021, Additional history exists Respiratory Syncytial Virus (RSV) Vaccine Pt: or over 60 yrs (1 - 1-dose 75+ series) 2030 HEPATITIS B VACCINE Aged Out No longe r eligible based on patient's age to complete this topic HIB VACCINE Aged Out No longer eligi ble based on patient's age to complete this topic HPV VACCINE Aged Out No longer eligi ble based on patient's age to complete this topic MENINGOCOCCAL (Group B) VACCINE Aged Out No longer eligible based on patient's age to complete this topic MENINGOCOCCAL VACCINE Aged Out No gemini angella eligible based on patient's age to complete this topic Medical Devices Implanted Type Area Lead Section Supervisor Device Identifier Shelf Expiration Date Model / Serial / Lot Acetabular Cup Implanted:Qty: 1 on 03/12/2015 by Tristen Soares IV, MD at [facility] Left: [employer] 10/06/2024 [id number] / / [id number] Acetabular Liner Implanted:Qty: 1 on 03/12/2015 by Tristen Soares IV, MD at [facility] Left: [employer] 01/03/2020 [id number] / / [id number] Scrw Selftap Lo Prof Ti 6.5 X 30mm Implanted:Qty: 1 on 03/12/2015 by Tristen Soares IV, MD at [facility] Left: [employer] 02/12/2025 [id number] / / [id number] Ceramic Head Implanted:Qty: 1 on 03/12/2015 by Tristen Soares IV, MD at [facility] Left: [employer] 03/08/2025 [id number] / / [id number] Micro Femoral Stem Implanted:Qty: 1 on 03/12/2015 by Tristen Soares IV, MD at [facility] Left: [employer] 05/08/2024 [id number] / / [id number] Minus 3 Taper Adapter Implanted:Qty: 1 on 03/12/2015 by Tristen Soares IV, MD at [facility] Left: [employer] 11/06/2024 [id number] / / [id number] Slv Centering G7 Std Ofst Tpr Hip Ti Ty Implanted:Qty: 1 on 11/25/2017 by Tristen Soares IV, MD at [facility] Right: Hip [employer] 02/16/2027 [id number] / / [id number] Stem Tprlok Microplast Hi Offst Sz 15 Implanted:Qty: 1 on 11/25/2017 by Tristen Soares IV, MD at [facility] Right: Hip [employer] 06/10/2027 [id number] / / [id number] Shell Actb 56mm Hip Lmt Hl Clr Cd Por G7 Implanted:Qty: 1 on 11/25/2017 by Tristen Soares IV, MD at [facility] Right: Hip [employer] 10/28/2027 [id number] / / [id number] Liner Actb G7 F Ntrl 36mm E1 Hip Implanted:Qty: 1 on 11/25/2017 by Tristen Soares IV, MD at [facility] Right: Hip [employer] 10/23/2022 [id number] / / [id number] Head Fem 36mm Hip Blx D Biolox Optn G7 Implanted:Qty: 1 on 11/25/2017 by Tristen Soares IV, MD at [facility] Right: Hip [employer] 03/17/2027 [id number] / / [id number] Stem Hum W/Align Tpr 45deg 17mm X 55mm Implanted:Qty: 1 on 12/02/2021 by Roxy Layton MD at [facility] Right: Shoulder [employer] 10/25/2030 [id number] / / [id number] Bsplt Glnd Cmprh 25 Mm Mini Shldr Tpr Ad Implanted:Qty: 1 on 12/02/2021 by Roxy Layton MD at [facility] Right: Shoulder [employer] 08/27/2030 [id number] / / [id number] Cmpnt Glnd 40mm Std Rvrs Glenosphere Implanted:Qty: 1 on 12/02/2021 by Roxy Layton MD at [facility] Right: Shoulder [employer] 10/03/2031 [id number] / / [id number] Screw 6.5mm 30mm 3.5mm Cntr Hex Shldr Implanted:Qty: 1 on 12/02/2021 by Roxy Layton MD at [facility] Right: Shoulder [employer] 05/08/2031 [id number] / / [id number] Screw 4.75mm 15mm 3.5mm Lck Fx Ang Hex Implanted:Qty: 1 on 12/02/2021 by Roxy Layton MD at [facility] Right: Shoulder [employer] 11/01/2031 [id number] / / [id number] Screw 4.75mm 20mm 3.5mm Lck Fx Ang Hex Implanted:Qty: 1 on 12/02/2021 by Roxy Layton MD at [facility] Right: Shoulder [employer] 11/06/2031 [id number] / / [id number] Screw 4.75mm 30mm 3.5mm Lck Fx Ang Hex Implanted:Qty: 1 on 12/02/2021 by Roxy Layton MD at [facility] Right: Shoulder [employer] 08/12/2031 [id number] / / [id number] Screw 4.75mm 15mm 3.5mm Lck Fx Ang Hex Implanted:Qty: 1 on 12/02/2021 by Roxy Layton MD at [facility] Right: Shoulder [employer] 11/01/2031 [id number] / / [id number] Mini Humeral Tray Implanted:Qty: 1 on 12/02/2021 by Roxy Layton MD at [facility] Right: Shoulder 01/19/2031 [id number] / / [id number] Brng Hum 40mm Cmprh Std Shldr Vivacit-E Implanted:Qty: 1 on 12/02/2021 by Roxy Layton MD at [facility] Right: Shoulder [employer] [id number] / / [id number] Procedures Procedure Name Priority Date/Time Associated Diagnosis Comments XR SHOULDER RIGHT 2VW OR MORE Routine 08/07/2024 10:55 AM TEST RACK OPERATOR Chronic right shoulder pain GLUCOSE - POINT OF CARE Routine 12/02/2021 11:50 AM CDT from Last 3 Months or Most Recently Relevant to Health Maintenance Results * XR Shoulder Right 2Vw or More (08/07/2024 10:55 AM TEST RACK OPERATOR) Narrative [facility] [address] - 08/07/2024 10:55 AM TEST RACK OPERATOR Please see progress note in Epic for results. Abigail Rosas PA-C DIAGNOSTIC IMAGING O RDERABLES [facility] [place] [address] * (ABNORMAL) GLUCOSE - POINT OF CARE (12/02/2021 11:50 AM CDT) Glucose WB/POC 111(H) 70 - 106 mg/dL 12/02/2021 11:51 AM CDT [facility] Specimen Type Cap Fingerstick 2021 11:51 AM CDT [facility] Blood BLOOD SPECIMEN / Unknown 12/02/2021 11:50 AM CDT 12/02/2021 11:51 AM CDT Roxy Layton MD LAB - POINT OF CARE ORDERABLES [facility] [address] [place] [id number] from Last 3 Months or Most Recently Relevant to Health Maintenance Advance Directives * Full Code (Latest Code Status on File) Date Activated Date Inactivated Comments 11/25/2017 10:46 AM 11/26/2017 4:02 PM * Full Code Date Activated Date Inactivated Comments 03/12/2015 11:30 AM 03/14/2015 2:04 PM Care Teams Technical Cable Jointer Relationship Specialty Start Date End Date Nikki Corado MD [address] [place] [address] PCP - General Family Medicine 11/11/17 [place] [address] [facility] [address] [place] [address] Orthopedic Surgery 01/28/15
--- OUTSIDE RECORDS SUMMARY | 2024-09-06 16:03 | XMS_ITS | Referral Summary ---
Author Organization [facility] Address [address] [place] [address] Care Team Providers Care Mattress Filling Machine Tender Name Role Phone Fany SCRUGGS MD, Tristen Unavailable [phone] Nikki Corado MD Primary Care Provider [phone] Source Comments [facility],non-owned Affiliates and Associated Physician Practices is amultiple site organization consisting of ambulatory clinics and hospital sitesin [place], [place], [place] and [place]. This disclosure is being madepursuant to the Care Everywhere program and may not contain all information available regarding this patient. Last updated 18.[facility] Encounters Date Type Department Care Team Description 08/07/2024 10:55 AM QUANTITATIVE CONSULTANT Ancillary Procedure [facility] Orthopedics - Radiology [address] [place] [phone] Abigail Rosas PA-C Chronic right shoulder pain 08/07/2024 11:00 AM QUANTITATIVE CONSULTANT Office Visit [facility] Orthopedics [address] [place] [address], [address] [place] [address] Abigail Rosas PA-C S/P arthroscopy of right shoulder, conjoint tendon release (Primary Dx); Chronic right shoulder pain; Status post reverse total replacement of right shoulder 06/21/2024 1:15 PM QUANTITATIVE CONSULTANT Office Visit [facility] [address] [place] [address], [address] [place] [address] Junior, Nikki, PA-C S/P arthroscopy of right shoulder, conjoint tendon release (Primary Dx); Chronic right shoulder pain; Status post reverse total replacement of right shoulder; Trapezius muscle spasm from Last 3 Months Allergies No known active allergies Medications * Be aware that medications may not be up to date on this document. Alwaysverify current medications with the patient. Medication Sig Dispensed Refills Start Date End Date Status Slayden 3-6-9 Fatty Acids (TRIPLE OMEGA-3-6-9 PO) Take by mouth at bedtime Active Turmeric 450 MG CAPS Take 2 Caps by mouth at bedtime Active Lecithin 1200 MG CAPS Take by mouth at bedtime 1325mg at bedtime Active simvastatin (ZOCOR) 20 MG tablet TAKE 1 TABLET BY MOUTH ONCE DAILY IN THE EVENING 1 04/30/2019 Active Multiple Vitamin (MULTIVITAMIN ADULT PO) [...] 30 tablet 1 05/11/2024 Active nystatin (Mycostatin) 777313 UNIT/GM cream Apply to affected area 2 [...] Mass Index 39.06 05/11/2024 9:20 AM CDT Functional Status Functional Status Response Date of Assess ment Is person deaf or have serious hearing difficult y? No 12/02/2021 Is person blind or have serious difficulty seein g? No 12/02/2021 Does person have serious dif ficulty walking/climbing stairs? No 12/02/2021 Does person have difficulty dressing/bathing? No 12/02/2021 Does person have difficulty doing errands alone? No 12/02/2021 Cognitive Status Response Date of Assessm ent Does person have difficulty concentrating/remembering/making decisions? No 12/02/2021 Plan of Treatment Upcoming Encounters Date Type Department Care Team (Late st Contact Info) Description 11/06/2024 11:15 AM CDT Office Visit [facility] Orthopedics [address] [place] [phone] Abigail Rosas PA-C [address] [id number] Medical Devices Implanted Type Area Airline Attendant Device Identifier Shelf Expiration Date Model / Serial / Lot Acetabular Cup Implanted:Qty: 1 on 03/12/2015 by Tristen Soares IV, MD at [facility] Left: Hip [employer] 10/06/2024 [id number] / / [id number] Acetabular Liner Implanted:Qty: 1 on 03/12/2015 by Tristen Soares IV, MD at [facility] Left: [employer] 01/03/2020 [id number] / / [id number] Scrw Selftap Lo Prof Ti 6.5 X 30mm Implanted:Qty: 1 on 03/12/2015 by Tristen Soares IV, MD at [facility] Left: [employer] 02/12/2025 [id number] / / [id number] Ceramic Head Implanted:Qty: 1 on 03/12/2015 by Tristen Soares IV, MD at [facility] Left: [employer] 03/08/2025 650-1057 / / [id number] Micro Femoral Stem Implanted:Qty: 1 on 03/12/2015 by Tristen Soares IV, MD at [facility] Left: [employer] 05/08/2024 [id number] / / [id number] Minus 3 Taper Adapter Implanted:Qty: 1 on 03/12/2015 by Tristen Soares IV, MD at [facility] Left: [employer] 11/06/2024 650-1065 / / [id number] Slv Centering G7 Std Ofst Tpr Hip Ti Ty Implanted:Qty: 1 on 11/25/2017 by Tristen Soares IV, MD at [facility] Right: Hip [employer] 02/16/2027 650-1066 / / [id number] Stem Tprlok Microplast Hi Offst Sz 15 Implanted:Qty: 1 on 11/25/2017 by Tristen Soares IV, MD at [facility] Right: Hip [employer] 06/10/2027 [id number] / / [id number] Shell Actb 56mm Hip Lmt Hl Clr Cd Por G7 Implanted:Qty: 1 on 11/25/2017 by Tristen Soares IV, MD at [facility] Right: Hip [employer] 10/28/2027 [id number] / / [id number] Liner Actb G7 F Ntrl 36mm E1 Hip Implanted:Qty: 1 on 11/25/2017 by Tristen Soares IV, MD at [facility] Right: Hip [employer] 10/23/2022 [id number] / / [id number] Head Fem 36mm Hip Blx D Biolox Optn G7 Implanted:Qty: 1 on 11/25/2017 by Tristen Soares IV, MD at [facility] Right: Hip [employer] 03/17/2027 650-1057 / / [id number] Stem Hum W/Align Tpr 45deg 17mm X 55mm Implanted:Qty: 1 on 12/02/2021 by Roxy Layton MD at [facility] Right: Shoulder [employer] 10/25/2030 [id number] / / [id number] Bsplt Glnd Cmprh 25 Mm Mini Shldr Tpr Ad Implanted:Qty: 1 on 12/02/2021 by Roxy Layton MD at [facility] Right: Shoulder [employer] 08/27/2030 [id number] / / [id number] Cmpnt Glnd 40mm Std Rvrs Glenosphere Implanted:Qty: 1 on 12/02/2021 by Roxy Layton MD at [facility] Right: Shoulder [employer] 10/03/2031 [id number] / / [id number] Screw 6.5mm 30mm 3.5mm Cntr Hex Shldr Implanted:Qty: 1 on 12/02/2021 by Roxy Layton MD at [facility] Right: Shoulder [employer] 05/08/2031 [id number] / / [id number] Screw 4.75mm 15mm 3.5mm Lck Fx Ang Hex Implanted:Qty: 1 on 12/02/2021 by Roxy Layton MD at [facility] Right: Shoulder [employer] 11/01/2031 [id number] / / [id number] Screw 4.75mm 20mm 3.5mm Lck Fx Ang Hex Implanted:Qty: 1 on 12/02/2021 by Roxy Layton MD at [facility] Right: Shoulder [employer] 11/06/2031 [id number] / / [id number] Screw 4.75mm 30mm 3.5mm Lck Fx Ang Hex Implanted:Qty: 1 on 12/02/2021 by Roxy Layton MD at [facility] Right: Shoulder [employer] 08/12/2031 [id number] / / [id number] Screw 4.75mm 15mm 3.5mm Lck Fx Ang Hex Implanted:Qty: 1 on 12/02/2021 by Roxy Layton MD at [facility] Right: Shoulder [employer] 11/01/2031 [id number] / / [id number] Mini Humeral Tray Implanted:Qty: 1 on 12/02/2021 by Roxy Layton MD at [facility] Right: Shoulder 01/19/2031 [id number] / / [id number] Brng Hum 40mm Cmprh Std Shldr Vivacit-E Implanted:Qty: 1 on 12/02/2021 by Roxy Layton MD at [facility] Right: Shoulder [employer] [id number] / / [id number] Procedures Procedure Name Priority Date/Time Associated Diagnosis Comments XR SHOULDER RIGHT 2VW OR MORE Routine 08/07/2024 10:55 AM QUANTITATIVE CONSULTANT Chronic right shoulder pain GLUCOSE - POINT OF CARE Routine 12/02/2021 11:50 AM CDT from Last 3 Months or Most Recently Relevant to Health Maintenance Results * XR Shoulder Right 2Vw or More (08/07/2024 10:55 AM QUANTITATIVE CONSULTANT) Narrative [facility] [address] - 08/07/2024 10:55 AM QUANTITATIVE CONSULTANT Please see progress note in Epic for results. Abigail Rosas PA-C DIAGNOSTIC IMAGING O RDERABLES [facility] [place] [address] * (ABNORMAL) GLUCOSE - POINT OF CARE (12/02/2021 11:50 AM CDT) Glucose WB/POC 111(H) 70 - 106 mg/dL 12/02/2021 11:51 AM CDT [facility] Specimen Type Cap Fingerstick 2021 11:51 AM CDT [facility] Blood BLOOD SPECIMEN / Unknown 12/02/2021 11:50 AM CDT 12/02/2021 11:51 AM CDT Roxy Layton MD LAB - POINT OF CARE ORDERABLES [facility] [address] [place] [address] from Last 3 Months or Most Recently Relevant to Health Maintenance Advance Directives * Full Code (Latest Code Status on File) Date Activated Date Inactivated Comments 11/25/2017 10:46 AM 11/26/2017 4:02 PM * Full Code Date Activated Date Inactivated Comments 03/12/2015 11:30 AM 03/14/2015 2:04 PM Care Teams Mattress Filling Machine Tender Relationship Specialty Start Date End Date Nikki Corado MD [address] [place] [address] PCP - General Family Medicine 11/11/17 [place] [address] [facility] [address] [place] [address] Orthopedic Surgery 01/28/15
--- OUTSIDE RECORDS SUMMARY | 2024-09-06 16:03 | XMS_ITS | Clinical Summary ---
Author Organization [facility] Address [address] [place] [address]. 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 Gender Identity Not on file Sexual Orientation Not on file Plan of Treatment Health Maintenance Due Date Last Done Comments Colorectal Cancer Screening Colonoscopy (10 Years) 1955 Hepatitis C 1973 DTaP, Tdap and Td Vaccines ( 1 - Tdap) 1974 Zoster Vaccines (1 of 2) 2005 Annual Medicare Wellness Visit 2020 COVID-19 Vaccine (3 - 2023-2 5 season) 2024 07/25/2021, 07/04/2021 Influenza Adult (#1) 2024 08/11/2019, 05/16/2018 RSV Immunization or 60+ Years (1 - 1-dose 75+ series) 2030 Pneumococcal Vaccine: 65+ Years Completed 06/03/2022, 10/04/2020 Meningococcal B Vaccine Aged Out No l onger eligible based on patient's age to complete this topic Meningococcal Vaccine Aged Out No gemini angella eligible based on patient's age to complete this topic RSV Immunizations Under 20 Months Aged Out No longer eligible b ased on patient's age to complete this topic Insurance MEDICARE [employer] Care Teams Kiln Stacker Relationship Specialty Start Date End Date Nikki Corado MD [address] [place] [address] PCP - General FAMILY PRACTICE 10/07/22
== END 2024-09-06 15:15 | disposition home or self-care (01) ==
LOC: ANHIMG 15:15
PROVIDERS: PCP Family Medicine; Visit Provider Student in an Organized Health Care Education/Training Program
DX: I82.492 Acute embolism and thrombosis of other specified deep vein of left lower extremity (principal)
CPT/HCPCS: 93971

== ENCOUNTER 2025-04-05 07:22 | Outpatient (CLI) | payer MEDICARE, SELFPAY ==
--- NOTE | ~2025-04-05 | CT_ITS ---
EXAMINATION: CT soft tissue neck w con COMPARISON: None HISTORY: H92.02 - Otalgia, left ear TECHNIQUE: Axial images were obtained with IV contrast. Sagittal, coronal reconstruction images were obtained from the axial views. Omnipaque 370, [address] scan performed using dose optimization techniques including the following automated exposure control; adjustment of mA and/or kV; use of iterative reconstruction technique. Automatic exposure control was used to reduce radiation dose. Permanent radiation dose record is archived to PACS. FINDINGS: Visualized brain parenchyma is unremarkable. The visualized optic globes appear unremarkable There is no thickening of the prevertebral space or asymmetry of the airway. No asymmetry of the base of the tongue on the aryepiglottic folds. No asymmetry of the vocal cords. No thyroid nodules identified. No anterior superior mediastinal lymphadenopathy. No thickening of the esophagus Parapharyngeal spaces intact. No asymmetry of the tonsillar tissue. Submandibular glands are unremarkable. Parotid glands unremarkable There is no jugulodigastric, posterior; supraclavicular lymphadenopathy The lung apices appear unremarkable. There are no sclerotic or lytic lesions. Severe degenerative changes of the right sternoclavicular joint. Severe right maxillary sinusitis with underlying polyp formation is suspected. The visualized soft tissues appear unremarkable No significant mastoid effusions are identified IMPRESSION: 1. No etiology to explain the patient's symptoms. If symptoms persist contrast enhanced MRI may be of benefit. 2. Incidental findings above Reviewed, dictated and finalized at location A.
--- OUTSIDE RECORDS SUMMARY | 2025-04-05 07:26 | XMS_ITS | Clinical Summary ---
Author Organization [email or web address] Address [address] [place] [address] Care Team Providers Care Chair Pad Maker Name Role Phone Fany SCRUGGS MD, Tristen Unavailable [phone] Nikki Corado MD Primary Care Provider [phone] Source Comments [email or web address],non-owned Affiliates and Associated Physician Practices is amultiple site organization consisting of ambulatory clinics and hospital sitesin [place], [place], [place] and [place]. This disclosure is being madepursuant to the Care Everywhere program and may not contain all information available regarding this patient. Last updated 18.[email or web address] Allergies No known active allergies Medications * Be aware that medications may not be up to date on this document. Alwaysverify current medications with the patient. Bluejacket 3-6-9 Fatty Acids (TRIPLE OMEGA-3-6-9 PO) Take by mouth at bedtime Active Turmeric 450 MG CAPS Take 2 Caps by mouth at bedtime Active Lecithin 1200 MG CAPS Take by mouth at bedtime 1325mg at bedtime Active simvastatin (ZOCOR) 20 MG tablet TAKE 1 TABLET BY MOUTH ONCE DAILY IN THE EVENING 9 Active Multiple Vitamin (MULTIVITAMIN ADULT PO) Active ELDERBERRY PO Take 50 mg by mouth once daily Active Multiple Vitamins-Minera ls (ZINC PO) Take 50 mg by mouth once daily Active CRANBERRY PO Take 15,000 mg by mouth Active Ascorbic Acid (VITAMIN C PO) Activ e ibuprofen (Motrin) 800 MG tablet Take 1 (one) tablet by mouth 3 times daily as needed with food for Pain 30 tablet 1 4 Active nystatin (Mycostatin) 685505 UNIT/GM cream Apply to affected area 2 times daily Right axilla/ armpit as needed for rash or itching. 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 Gender Identity Not on file Sexual Orientation Not on file Last Filed Vital Signs Vital Sign Reading Time Taken Comments Blood Pressure 123/70 05/11/2024 3:05 PM CDT Pulse 81 05/11/2024 3:05 PM CDT Temperature 36.2 C (97.1 F) 05/11/2024 2:00 PM CDT Respiratory Rate 22 05/11/2024 3:05 PM CDT Oxygen Saturation 91% 05/11/2024 3:05 PM CDT Inhaled Oxygen Concentration - - Weight 109.8 kg (242 lb) 05/11/2024 9:20 AM CDT Height 167.6 cm (5' 6) 05/11/2024 9:20 AM CDT Body Mass Index 39.06 05/11/2024 9:20 AM CDT Plan of Treatment Health Maintenance Due Date Last Done Comments COLOGUARD (AGES 45-75) - COLON CA SCREENING 1955 COLON MONITORING 1955 COLONOSCOPY - COLON CA SCREENING 1955 CT COLONOGRAPHY - COLON CA SCREENING 1955 Colorectal Cancer Screening 1955 FIT - COLON CA SCREENING 1955 FLEX SIG - COLON CA SCREENING 1955 MEDICARE AWV 12 MONTHS 1955 HEPATITIS C SCREENING 09/19/1973 DTAP/TDAP/TD VACCINES (1 - Tdap) 1974 PNEUMOCOCCAL VACCINE 50+ (1 of 1 - PCV) 2005 ZOSTER VACCINE (1 of 2) 2005 COVID-19 VACCINE (3 - season) 2024 07/25/2021, 07/04/2021 DEPRESSION SCREENING 08/09/2024 06/21/2024 SCREENING FOR DIABETES 12/02/2024 , 12/02/2021, 12/02/2021, Additional history exists INFLUENZA VACCINE (#1) 2025 08/11/2019, 2017 Respiratory Syncytial Virus (RSV) Vaccine Pt: or [...] complete this topic MENINGOCOCCAL (Group B) VACCINE SHARED DECISION-MAKING Aged Out No longer eligible based on patient's age to complete this topic MENINGOCOCCAL GROUPS A/C/Y/W VACCINE Aged Out No longer eligible based on patient's age to complete this topic Medical Devices Implanted Type Area International Specialist Device Identifier Shelf Expiration Date Model / Serial / Lot Acetabular Cup Implanted:Qty: 1 on 03/12/2015 by Tristen Soares IV, MD at [facility] Left: [employer] 10/06/2024 [id number] / / [id number] Acetabular Liner Implanted:Qty: 1 on 03/12/2015 by Tristen Soares IV, MD at [facility] Left: [employer] 01/03/2020 [id number] / / [id number] Scrw Selftap Lo Prof Ti 6.5 X 30mm Implanted:Qty: 1 on 03/12/2015 by Tristen Soares IV, MD at [facility] Left: [employer] 02/12/2025 [id number] / / [id number] Ceramic Head Implanted:Qty: 1 on 03/12/2015 by Tristen Soares IV, MD at [facility] Left: [employer] 03/08/2025 [id number] / / [id number] Micro Femoral Stem Implanted:Qty: 1 on 03/12/2015 by Tristen Soares IV, MD at [facility] Left: [employer] 05/08/2024 [id number] / / [id number] Minus 3 Taper Adapter Implanted:Qty: 1 on 03/12/2015 by Tristen Soares IV, MD at [facility] Left: [employer] 11/06/2024 [id number] / / [id number] Slv Centering G7 Std Ofst Tpr Hip Ti Ty Implanted:Qty: 1 on 11/25/2017 by Tristen Soares IV, MD at [facility] Right: Hip [employer] 02/16/2027 [id number] / / [id number] Stem Tprlok Microplast Hi Offst Sz 15 Implanted:Qty: 1 on 11/25/2017 by Tristen Soares IV, MD at [facility] Right: Hip [employer] 06/10/2027 [id number] / / [id number] Shell Actb 56mm Hip Lmt Hl Clr Cd Por G7 Implanted:Qty: 1 on 11/25/2017 by Tristen Soares IV, MD at [facility] Right: Hip [employer] 10/28/2027 [id number] / / [id number] Liner Actb G7 F Ntrl 36mm E1 Hip Implanted:Qty: 1 on 11/25/2017 by Tristen Soares IV, MD at [facility] Right: Hip [employer] 10/23/2022 [id number] / / [id number] Head Fem 36mm Hip Blx D Biolox Optn G7 Implanted:Qty: 1 on 11/25/2017 by Tristen Soares IV, MD at [facility] Right: Hip [employer] 03/17/2027 [id number] / / [id number] Stem Hum W/Align Tpr 45deg 17mm X 55mm Implanted:Qty: 1 on 12/02/2021 by Roxy Layton MD at [facility] Right: Shoulder [employer] 10/25/2030 [id number] / / [id number] Bsplt Glnd Cmprh 25 Mm Mini Shldr Tpr Ad Implanted:Qty: 1 on 12/02/2021 by Roxy Layton MD at [facility] Right: Shoulder [employer] 08/27/2030 [id number] / / [id number] Cmpnt Glnd 40mm Std Rvrs Glenosphere Implanted:Qty: 1 on 12/02/2021 by Roxy Layton MD at [facility] Right: Shoulder [employer] 10/03/2031 [id number] / / [id number] Screw 6.5mm 30mm 3.5mm Cntr Hex Shldr Implanted:Qty: 1 on 12/02/2021 by Roxy Layton MD at [facility] Right: Shoulder [employer] 05/08/2031 [id number] / / [id number] Screw 4.75mm 15mm 3.5mm Lck Fx Ang Hex Implanted:Qty: 1 on 12/02/2021 by Roxy Layton MD at [facility] Right: Shoulder [employer] 11/01/2031 [id number] / / [id number] Screw 4.75mm 20mm 3.5mm Lck Fx Ang Hex Implanted:Qty: 1 on 12/02/2021 by Roxy Layton MD at [facility] Right: Shoulder [employer] 11/06/2031 [id number] / / [id number] Screw 4.75mm 30mm 3.5mm Lck Fx Ang Hex Implanted:Qty: 1 on 12/02/2021 by Roxy Layton MD at [facility] Right: Shoulder [employer] 08/12/2031 [id number] / / [id number] Screw 4.75mm 15mm 3.5mm Lck Fx Ang Hex Implanted:Qty: 1 on 12/02/2021 by Roxy Layton MD at [facility] Right: Shoulder [employer] 11/01/2031 [id number] / / [id number] Mini Humeral Tray Implanted:Qty: 1 on 12/02/2021 by Roxy Layton MD at [facility] Right: Shoulder 01/19/2031 [id number] / / [id number] Brng Hum 40mm Cmprh Std Shldr Vivacit-E Implanted:Qty: 1 on 12/02/2021 by Roxy Layton MD at [facility] Right: Shoulder [employer] [id number] / / [id number] Procedures Procedure Name Priority Date/Time Associated Diagnosis Comments GLUCOSE - POINT OF CARE Routine 12/02/2021 11:50 AM CDT from Last 3 Months or Most Recently Relevant to Health Maintenance Results * (ABNORMAL) GLUCOSE - POINT OF CARE (12/02/2021 11:50 AM CDT) [facility] [address] [facility] Glucose WB/POC 111(H) 70 - 106 mg/dL 12/02/2021 11:51 AM CDT [facility] Specimen Type Cap Fingerstick 2021 11:51 AM CDT [facility] Blood BLOOD SPECIMEN / Unknown 12/02/2021 11:50 AM CDT 12/02/2021 11:51 AM CDT Roxy Layton MD LAB - POINT OF CARE ORDERAB LES Final Result [facility] [address] [place] [address] from Last 3 Months or Most Recently Relevant to Health Maintenance Insurance AETNA MEDICARE Advance Directives * Full Code (Latest Code Status on File) Date Activated Date Inactivated Comments 11/25/2017 10:46 AM 11/26/2017 4:02 PM * Full Code Date Activated Date Inactivated Comments 03/12/2015 11:30 AM 03/14/2015 2:04 PM Care Teams Chair Pad Maker Relationship Specialty Start Date End Date Nikki Corado MD [address] [place] [address] PCP - General Family Medicine 11/11/17 [place] [address] [facility] [address] [place] [address] Orthopedic Surgery 01/28/15
[2025-04-05 07:51] LABS: Estimated Glomerular Filt Rate > 60
== END 2025-04-05 07:23 | disposition home or self-care (01) ==
LOC: CHSIMG 07:24
PROVIDERS: PCP Family Medicine; Visit Provider Otolaryngology
DX: J32.9 Chronic sinusitis, unspecified (principal); H92.02 Otalgia, left ear
CPT/HCPCS: 70491; Q9967

== ENCOUNTER 2025-05-04 07:11 | Outpatient (CLI) | payer MEDICARE, SELFPAY ==
--- NOTE | ~2025-05-04 | CT_ITS ---
EXAMINATION: CT sinus wo con DATE: 05/04/2025 07:28 INDICATION: Chronic sinusitis TECHNIQUE: Computed tomography (CT) of the paranasal sinuses was performed without intravenous contrast. The dose-length product was 234.15 mGy-cm. Automated exposure control and iterative reconstruction technique were employed. COMPARISON: None FINDINGS: There is near complete opacification right maxillary sinus with mild mucoperiosteal reaction, consistent with chronic changes. There is right-sided jose raul bullosa. Rightward nasal septal deviation. Left ostiomeatal unit is patent. Right ostiomeatal unit is occluded. There is mild mucosal thickening of the left frontal sinus. Mastoids are pneumatized. IMPRESSION: 1. Moderate sinus disease primarily affecting the right maxillary sinus with associated mucoperiosteal reaction. Reviewed, dictated and finalized at location O. IMPRESSION: 1. Moderate sinus disease primarily affecting the right maxillary sinus with as sociated mucoperiosteal reaction.
--- OUTSIDE RECORDS SUMMARY | 2025-05-04 07:16 | XMS_ITS | Clinical Summary ---
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 Gender Identity Not on file Sexual Orientation Not on file Plan of Treatment Health Maintenance Due Date Last Done Comments Colorectal Cancer Screening Colonoscopy (10 Years) 1955 Hepatitis C 1973 DTaP, Tdap and Td Vaccines ( 1 - Tdap) 1974 Zoster Vaccines (1 of 2) 2005 Annual Medicare Wellness Visit 2020 PHQ-2 (Physician [place]) 08/09/2024 COVID-19 Vaccine (3 - 2024-2 6 season) 2025 07/25/2021, 07/04/2021 RSV Immunization or 60+ Years (1 - 1-dose 75+ series) 2030 Pneumococcal Vaccine: 50+ Years Completed 06/03/2022, 10/04/2020 Meningococcal B Vaccine Aged Out No l onger eligible based on patient's age to complete this topic Meningococcal Vaccine Aged Out No gemini angella eligible based on patient's age to complete this topic RSV Immunizations Under 20 Months Aged Out No longer eligible b ased on patient's age to complete this topic Insurance MEDICARE AETNA Care Teams Fire Support Specialist Relationship Specialty Start Date End Date Nikki Corado MD [address] [place] [address] PCP - General FAMILY PRACTICE 10/07/22
--- OUTSIDE RECORDS SUMMARY | 2025-05-04 07:16 | XMS_ITS | Clinical Summary ---
Author Organization [facility] Address [address] [place] [address] Care Team Providers Care Ui Developer Designer Name Role Phone Fany SCRUGGS MD, Tristen Unavailable [phone] Nikki Corado MD Primary Care Provider [phone] Source Comments [facility],non-owned Affiliates and Associated Physician Practices is amultiple site organization consisting of ambulatory clinics and hospital sitesin [place], [place], [place] and [place]. This disclosure is being madepursuant to the Care Everywhere program and may not contain all information available regarding this patient. Last updated 18.[facility] Allergies No known active allergies Medications * Be aware that medications may not be up to date on this document. Alwaysverify current medications with the patient. 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 Gender Identity Not on file Sexual Orientation [...] 2005 ZOSTER VACCINE (1 of 2) 2005 DEPRESSION SCREENING 08/09/2024 06/21/2024 SCREENING FOR DIABETES 12/02/2024 2, 12/02/2021, 12/02/2021, Additional history exists COVID-19 VACCINE (3 - season) 2025 07/25/2021, 07/04/2021 INFLUENZA VACCINE (#1) 2025 08/11/2019, 2017 Respiratory [...] this topic Medical Devices Implanted Type Area Rag Cutting Machine Tender Device Identifier Shelf Expiration Date Model / Serial / Lot Acetabular Cup Implanted:Qty: 1 on 03/12/2015 by Tristen Soares IV, MD at [facility] Left: [employer] 10/06/2024 [id number] / / [id number] Acetabular Liner Implanted:Qty: 1 on 03/12/2015 by Tristen Soares IV, MD at [facility] Left: [employer] 01/03/2020 [id number] / / [id number] Scrw Selftap Lo Prof Ti 6.5 X 30mm Implanted:Qty: 1 on 03/12/2015 by Tristen Soares IV, MD at [facility] Left: [employer] 02/12/2025 [id number] / / [id number] Ceramic Head Implanted:Qty: 1 on 03/12/2015 by Tristen Soares IV, MD at [facility] Left: [employer] 03/08/2025 650-1057 / / [id number] Micro Femoral Stem Implanted:Qty: 1 on 03/12/2015 by Tristen Soares IV, MD at [facility] Left: [employer] 05/08/2024 [id number] / / [id number] Minus 3 Taper Adapter Implanted:Qty: 1 on 03/12/2015 by Tristen Soares IV, MD at [facility] Left: [employer] 11/06/2024 650-1065 / / [id number] Slv Centering G7 Std Ofst Tpr Hip Ti Ty Implanted:Qty: 1 on 11/25/2017 by Tristen Soares IV, MD at [facility] Right: Hip [employer] 02/16/2027 650-1066 / / [id number] Stem Tprlok Microplast Hi Offst Sz 15 Implanted:Qty: 1 on 11/25/2017 by Tristen Soares IV, MD at [facility] Right: Hip [employer] 06/10/2027 [id number] / / [id number] Shell Actb 56mm Hip Lmt Hl Clr Cd Por G7 Implanted:Qty: 1 on 11/25/2017 by Tristen Soares IV, MD at [facility] Right: Hip [employer] 10/28/2027 [id number] / / [id number] Liner Actb G7 F Ntrl 36mm E1 Hip Implanted:Qty: 1 on 11/25/2017 by Tristen Soares IV, MD at [facility] Right: Hip [employer] 10/23/2022 [id number] / / [id number] Head Fem 36mm Hip Blx D Biolox Optn G7 Implanted:Qty: 1 on 11/25/2017 by Tristen Soares IV, MD at [facility] Right: Hip [employer] 03/17/2027 [id number] / / [id number] Stem Hum W/Align Tpr 45deg 17mm X 55mm Implanted:Qty: 1 on 12/02/2021 by Roxy Layton MD at [facility] Right: Shoulder [employer] 10/25/2030 [id number] / / [id number] Bsplt Glnd Cmprh 25 Mm Mini Shldr Tpr Ad Implanted:Qty: 1 on 12/02/2021 by Roxy Layton MD at [facility] Right: Shoulder [employer] 08/27/2030 [id number] / / [id number] Cmpnt Glnd 40mm Std Rvrs Glenosphere Implanted:Qty: 1 on 12/02/2021 by Roxy Layton MD at [facility] Right: Shoulder [employer] 10/03/2031 [id number] / / [id number] Screw 6.5mm 30mm 3.5mm Cntr Hex Shldr Implanted:Qty: 1 on 12/02/2021 by Roxy Layton MD at [facility] Right: Shoulder [employer] 05/08/2031 [id number] / / [id number] Screw 4.75mm 15mm 3.5mm Lck Fx Ang Hex Implanted:Qty: 1 on 12/02/2021 by Roxy Layton MD at [facility] Right: Shoulder [employer] 11/01/2031 [id number] / / [id number] Screw 4.75mm 20mm 3.5mm Lck Fx Ang Hex Implanted:Qty: 1 on 12/02/2021 by Roxy Layton MD at [facility] Right: Shoulder [employer] 11/06/2031 [id number] / / [id number] Screw 4.75mm 30mm 3.5mm Lck Fx Ang Hex Implanted:Qty: 1 on 12/02/2021 by Roxy Layton MD at [facility] Right: Shoulder [employer] 08/12/2031 [id number] / / [id number] Screw 4.75mm 15mm 3.5mm Lck Fx Ang Hex Implanted:Qty: 1 on 12/02/2021 by Roxy Layton MD at [facility] Right: Shoulder [employer] 11/01/2031 [id number] / / [id number] Mini Humeral Tray Implanted:Qty: 1 on 12/02/2021 by Roxy Layton MD at [facility] Right: Shoulder 01/19/2031 [id number] / / [id number] Brng Hum 40mm Cmprh Std Shldr Vivacit-E Implanted:Qty: 1 on 12/02/2021 by Roxy Layton MD at [facility] Right: Shoulder [employer] [id number] / / [id number] Procedures Procedure Name Priority Date/Time Associated Diagnosis Comments GLUCOSE - POINT OF CARE Routine 12/02/2021 11:50 AM CDT from Last 3 Months or Most Recently Relevant to Health Maintenance Results * (ABNORMAL) GLUCOSE - POINT OF CARE (12/02/2021 11:50 AM CDT) [facility] Glucose WB/POC 111(H) 70 - 106 mg/dL 12/02/2021 11:51 AM CDT [facility] Specimen Type Cap Fingerstick 2021 11:51 AM CDT [facility] Blood BLOOD SPECIMEN / Unknown 12/02/2021 11:50 AM CDT 12/02/2021 11:51 AM CDT Roxy Layton MD LAB - POINT OF CARE ORDERAB LES Final Result [facility] [address] [place] [address] from Last 3 Months or Most Recently Relevant to Health Maintenance Insurance AETNA MEDICARE Advance Directives * Full Code (Latest Code Status on File) Date Activated Date Inactivated Comments 11/25/2017 10:46 AM 11/26/2017 4:02 PM * Full Code Date Activated Date Inactivated Comments 03/12/2015 11:30 AM 03/14/2015 2:04 PM Care Teams Ui Developer Designer Relationship Specialty Start Date End Date Nikki Corado MD [address] [place] [address] PCP - General Family Medicine 11/11/17 [place] [address] [facility] [address] [place] [address] Orthopedic Surgery 01/28/15
== END 2025-05-04 07:12 | disposition home or self-care (01) ==
LOC: CHSIMG 07:13
PROVIDERS: PCP Family Medicine; Visit Provider Otolaryngology
DX: B49 Unspecified mycosis (principal); J30.89 Other allergic rhinitis; J32.0 Chronic maxillary sinusitis
CPT/HCPCS: 70486

== ENCOUNTER 2025-05-18 07:40 | Outpatient (CLI) | payer MEDICARE, SELFPAY ==
--- NOTE | 2025-05-18 07:46 | ECG_ITS ---
Test Date: 2025-05-18 08:03:22 Measurements Intervals [place] Rate: 73 P: 42 CO: 187 QRS: 35 QRSD: 106 T: 40 QT: 370 QTc: 408 Interpretive Statements SINUS RHYTHM DELAYED PRECORDIAL R/S TRANSITION BORDERLINE ECG No previous ECG available for comparison Electronically Signed On 05-18-2025 08:37:27 CDT by [place] [place] D.O.
--- OUTSIDE RECORDS SUMMARY | 2025-05-18 07:47 | XMS_ITS | Clinical Summary ---
Author Organization [facility] Address [address] [place] [address] Care Team Providers Care Room Service Food Service Attendant Name Role Phone Fany SCRUGGS MD, Tristen Unavailable [phone] Nikki Corado MD Primary Care Provider [phone] Source Comments [facility],non-owned Affiliates and Associated Physician Practices is amultiple site organization consisting of ambulatory clinics and hospital sitesin [place], [place] and [place]. This disclosure is being madepursuant to the Care Everywhere program and may not contain all information available regarding this patient. Last updated 18.[facility] Allergies No known active allergies Medications * Be aware that medications may not be up to date on this document. Alwaysverify current medications with the patient. 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 Gender Identity Not on file Sexual Orientation [...] this topic Medical Devices Implanted Type Area Rand Cementer Device Identifier Shelf Expiration Date Model / Serial / Lot Acetabular Cup Implanted:Qty: 1 on 03/12/2015 by Tristen Soares IV, MD at [facility] Left: Hip [employer] 10/06/2024 [id number] / / [id number] Acetabular Liner Implanted:Qty: 1 on 03/12/2015 by Tristen Soares IV, MD at [facility] Left: [employer] 01/03/2020 [id number] / / [id number] Scrw Selftap Lo Prof Ti 6.5 X 30mm Implanted:Qty: 1 on 03/12/2015 by Tristen Soares IV, MD at [facility] Left: [employer] 02/12/2025 [id number] / / [id number] Ceramic Head Implanted:Qty: 1 on 03/12/2015 by Tristen Soares IV, MD at [facility] Left: [employer] 03/08/2025 [id number] / / [id number] Micro Femoral Stem Implanted:Qty: 1 on 03/12/2015 by Tristen Soares IV, MD at [facility] Left: [employer] 05/08/2024 [id number] / / [id number] Minus 3 Taper Adapter Implanted:Qty: 1 on 03/12/2015 by Tristen Soares IV, MD at [facility] Left: [employer] 11/06/2024 [id number] / / [id number] Slv Centering G7 Std Ofst Tpr Hip Ti Ty Implanted:Qty: 1 on 11/25/2017 by Tristen Soares IV, MD at [facility] Right: Hip [employer] 02/16/2027 [id number] / / [id number] Stem Tprlok Microplast Hi Offst Sz 15 Implanted:Qty: 1 on 11/25/2017 by Tristen Soares IV, MD at [facility] Right: Hip [employer] 06/10/2027 [id number] / / [id number] Shell Actb 56mm Hip Lmt Hl Clr Cd Por G7 Implanted:Qty: 1 on 11/25/2017 by Tristen Soares IV, MD at [facility] Right: Hip [employer] 10/28/2027 [id number] / / [id number] Liner Actb G7 F Ntrl 36mm E1 Hip Implanted:Qty: 1 on 11/25/2017 by Tristen Soares IV, MD at [facility] Right: Hip [employer] 10/23/2022 [id number] / / [id number] Head Fem 36mm Hip Blx D Biolox Optn G7 Implanted:Qty: 1 on 11/25/2017 by Tristen Soares IV, MD at [facility] Right: Hip [employer] 03/17/2027 [id number] / / [id number] Stem Hum W/Align Tpr 45deg 17mm X 55mm Implanted:Qty: 1 on 12/02/2021 by Roxy Layton MD at [facility] Right: Shoulder [employer] 10/25/2030 [id number] / / [id number] Bsplt Glnd Cmprh 25 Mm Mini Shldr Tpr Ad Implanted:Qty: 1 on 12/02/2021 by Roxy Layton MD at [facility] Right: Shoulder [employer] 08/27/2030 [id number] / / [id number] Cmpnt Glnd 40mm Std Rvrs Glenosphere Implanted:Qty: 1 on 12/02/2021 by Roxy Layton MD at [facility] Right: Shoulder [employer] 10/03/2031 [id number] / / [id number] Screw 6.5mm 30mm 3.5mm Cntr Hex Shldr Implanted:Qty: 1 on 12/02/2021 by Roxy Layton MD at [facility] Right: Shoulder [employer] 05/08/2031 [id number] / / [id number] Screw 4.75mm 15mm 3.5mm Lck Fx Ang Hex Implanted:Qty: 1 on 12/02/2021 by Roxy Layton MD at [facility] Right: Shoulder [employer] 11/01/2031 [id number] / / [id number] Screw 4.75mm 20mm 3.5mm Lck Fx Ang Hex Implanted:Qty: 1 on 12/02/2021 by Roxy Layton MD at [facility] Right: Shoulder [employer] 11/06/2031 [id number] / / [id number] Screw 4.75mm 30mm 3.5mm Lck Fx Ang Hex Implanted:Qty: 1 on 12/02/2021 by Roxy Layton MD at [facility] Right: Shoulder [employer] 08/12/2031 [id number] / / [id number] Screw 4.75mm 15mm 3.5mm Lck Fx Ang Hex Implanted:Qty: 1 on 12/02/2021 by Roxy Layton MD at [facility] Right: Shoulder [employer] 11/01/2031 [id number] / / [id number] Mini Humeral Tray Implanted:Qty: 1 on 12/02/2021 by Roxy Layton MD at [facility] Right: Shoulder 01/19/2031 [id number] / / [id number] Brng Hum 40mm Cmprh Std Shldr Vivacit-E Implanted:Qty: 1 on 12/02/2021 by Roxy Layton MD at [facility] Right: Shoulder [employer] [id number] / / [id number] Procedures Procedure Name Priority Date/Time Associated Diagnosis Comments GLUCOSE - POINT OF CARE Routine 12/02/2021 11:50 AM CDT from Last 3 Months or Most Recently Relevant to Health Maintenance Results * (ABNORMAL) GLUCOSE - POINT OF CARE (12/02/2021 11:50 AM CDT) [facility] Glucose WB/POC 111(H) 70 - 106 mg/dL 12/02/2021 11:51 AM CDT [facility] Specimen Type Cap Fingerstick 2021 11:51 AM CDT [facility] Blood BLOOD SPECIMEN / Unknown 12/02/2021 11:50 AM CDT 12/02/2021 11:51 AM CDT Roxy Layton MD LAB - POINT OF CARE ORDERAB LES Final Result [facility] [address] [place] [address] from Last 3 Months or Most Recently Relevant to Health Maintenance Insurance A[employer] MEDICARE Advance Directives * Full Code (Latest Code Status on File) Date Activated Date Inactivated Comments 11/25/2017 10:46 AM 11/26/2017 4:02 PM * Full Code Date Activated Date Inactivated Comments 03/12/2015 11:30 AM 03/14/2015 2:04 PM Care Teams Room Service Food Service Attendant Relationship Specialty Start Date End Date Nikki Corado MD [address] [place] [address] PCP - General Family Medicine 11/11/17 [place] [address] [address] [place] [address] Orthopedic Surgery 01/28/15
--- OUTSIDE RECORDS SUMMARY | 2025-05-18 07:47 | XMS_ITS | Clinical Summary ---
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 Gender Identity Not on file Sexual Orientation Not on file Plan of Treatment Health Maintenance Due Date Last Done Comments Colorectal Cancer Screening Colonoscopy (10 Years) 1955 Hepatitis C 1973 DTaP, Tdap and Td Vaccines ( 1 - Tdap) 1974 Zoster Vaccines (1 of 2) 2005 Annual Medicare Wellness Visit 2020 PHQ-2 (Physician [place]) 08/09/2024 COVID-19 Vaccine (3 - 2024-2 6 season) 2025 07/25/2021, 07/04/2021 Influenza Adult (#1) 2025 08/11/2019, 05/16/2018 RSV Immunization or 60+ Years [...] this topic Insurance MEDICARE AETNA Care Teams Loss Prevention Representative Relationship Specialty Start Date End Date Nikki Corado MD [address] [place] [address] PCP - General FAMILY PRACTICE 10/07/22
== END 2025-05-18 07:41 | disposition home or self-care (01) ==
PROVIDERS: PCP Family Medicine
DX: E78.5 Hyperlipidemia, unspecified (principal); R94.31 Abnormal electrocardiogram [ECG] [EKG]
CPT/HCPCS: 93005

== ENCOUNTER 2025-05-28 01:24 | Day surgery (SDC) | payer MEDICARE, SELFPAY ==
--- NOTE | 2025-05-17 11:06 | PC.NURSE ---
[facility] has started construction of its new state of the art ER which will open Spring 2026. With this, we anticipate parking may be a challenge for some our surgical patients and families. Parking spaces are limited but are available for all Surgical, obstetrics, and ER patients sharing this lot. If you arrive and find you are having a hard time finding a parking space, please note that we understand the challenges, please drive around the hospital and park near Hospital Entrance 1. When you enter this entrance, you can ask a volunteer to direct or take you back to the surgical waiting area to check in. We appreciate everyone?s understanding of these expected challenges while we build for your future. Report to the Outpatient Waiting Room, entrance under the green pavilion located off [address], at time __10:30 AM on date __05/28/25 . Planned Procedure Time: ___12:30 PM .? Time changes happen often and if your time is changed the preop area will call you the afternoon before. - You and your visitor will be asked to self-screen and do not enter if you have any COVID symptoms. Please call surgeon if you need to reschedule. - A mask is optional within the hospital at this time. Patients may have clear liquids (water, carbonated beverages, clear teas, apple juice) until 3 hours prior to surgery ( 9:30 AM)with a maximum of 20 ounces. - No food from midnight until time of surgery and no smoking, or chewing tobacco (or any form of nicotine). No chewing gum, candy or mints. - Take only the following medications with a SIP of water on the morning of surgery: NONE DO NOT STOP ANY OF YOUR OTHER PRESCRIPTION MEDICATIONS PRIOR TO SURGERY EXCEPT THE FOLLOWING Hold all vitamins and supplements for 3 days per anesthesiologist.LAST DOSE 05/24/25 Medications to discontinue per physician ASPIRIN PER DR OLSEN ____ Please no make-up, nail belarusian, hairspray, perfume, deodorant, or body powder the day of surgery.? No jewelry (including any body piercings) or valuables the day of surgery, leave them at home.? Please take a shower or bath the night before, or the morning of, surgery with an antibacterial soap.? Wear comfortable, loose fitting clothing.? Children are encouraged to wear pajamas. - Jewelry must be removed prior to entering the operating room.? Rings and piercings that are not removed may be cut off. - The hospital will not accept responsibility for valuables.? - Please leave all valuables, including medications, at home the day of surgery. If you are going home after surgery, a licensed steam train driver must drive you home.? - NO public transportation without another adult if you receive anesthesia. - We recommend that an adult stay with you for 24 hours following discharge. - We also recommend that you do not drive, make important decision, drink alcoholic beverages, or take any drugs that were not prescribed by your health care provider for at least 24 hours after your discharge time. Follow any additional instructions given to you from your surgeon. Telephone instructions given to __WIFE NAN and asked if any additional questions and then verbalized understanding. Patient advised to call surgeon office or pre surgery nurse liaison [phone] if any additional questions.
[2025-05-17 11:22] VITALS: BMI 38.0
--- NOTE | 2025-05-25 09:05 | PM.IMHP ---
H&P: HPI History of Present Illness Date/Time: 05/25/25 09:05 Chief Complaint: nasal obstruction nasal congestion jose raul bullosa septal deviation recurrent acute sinusitis chronic sinusitis Narrative: planned surgical procedure Review of Systems Review of Systems: All systems reviewed & are unremarkable except as noted in HPI and below [facility] Past Medical History Medical History Pre-diabetes Facial pressure Pre-op evaluation Normal colonoscopy (~11/2020) Obesity (BMI 30.0-34.9) Colon cancer screening Wellness examination Obstructive sleep apnea Elevated PSA Left nephrolithiasis HLD (hyperlipidemia) Surgical History Surgical History History of right shoulder replacement Social History Social History Smoking status: Never smoker Second hand tobacco smoke exposure: Yes Alcohol intake: never Substance use: never Substance use type: does not use Lack of Transportation: No Lack of Food: Never True Current Housing: I Have Housing Concerned About Future Housing: No Difficulty Paying for Meds: No Currently Unemployed: No Education: Associate Degree Difficulty w/ Childcare or Family Care: No Living arrangements: with family Gender identity (if verbalized by the patient): Male Spiritual care concerns: No Agree to blood products: Yes Meds Home Medications and Allergies Home Medications ?Medication ?Instructions ?Recorded ?Confirmed ?Type Soybean Lecithin 1 cap PO DAILY 05/14/20 05/17/25 History aspirin 81 mg tablet,delayed 81 mg PO DAILY 05/14/20 05/17/25 History release cranberry 500 mg capsule 500 mg PO DAILY 05/14/20 05/17/25 History multivitamin 1 tablet PO DAILY 05/14/20 05/17/25 History omega 0-pkk-djn-fish oil 1,000 mg 1 cap PO BID 05/14/20 05/17/25 History (120 mg-180 mg) capsule (Fish Oil) turmeric 400 mg capsule 800 mg PO DAILY 05/14/20 05/17/25 History ascorbic acid (vitamin C) 500 mg 500 mg PO DAILY 10/10/21 05/17/25 History capsule zinc acetate 50 mg (zinc) capsule 50 mg PO DAILY 10/10/21 05/17/25 History (Galzin) fluticasone propionate 50 2 spray intranasal .bid #48 grams 06/04/23 05/17/25 Rx mcg/actuation nasal spray,suspension (Flonase Allergy Relief) CPAP #1 ea 04/26/24 09/06/24 Rx simvastatin 20 mg tablet 20 mg PO DAILY #90 tabs 09/21/24 05/17/25 Rx doxycycline hyclate 100 mg capsule 100 mg PO BID #14 caps 03/22/25 05/17/25 Rx Allergies Allergy/AdvReac Type Severity Reaction Status Date / Time No Known Allergies Allergy Verified 05/17/25 11:03 Exam Narrative: Chronic sinusitis septal deviation jose raul bullosa Assessment and Plan Assessment and plan (1) Chronic sinusitis: Code(s): J32.9 - Chronic sinusitis, unspecified Status: Acute Assessment and Plan: OR For endoscopic assisted septoplasty, right jose raul bullosa resection, and right image guided endoscopic maxillary antrostomy with tissue removal. I will need the image guidance system as well as hydro debrider. Total operative time 1.5 hours. Anesthesia general. risks were discussed bleeding infection damage to other structures need further procedures failure to resolve symptoms septal perforation CSF leak brain damage change in vision total blindness numbness of the dentition damage to any structure of the clavicles by myself damage to structure induction and maintenance of anesthesia including vocal cord paralysis. Patient voiced understanding of these risks and agreed. (2) Chronic sinusitis: Code(s): J32.9 - Chronic sinusitis, unspecified Status: Acute (3) Allergic fungal sinusitis: Code(s): J30.89 - Other allergic rhinitis; B49 - Unspecified mycosis Status: Acute (4) Jose Raul bullosa: Code(s): J34.89 - Other specified disorders of nose and nasal sinuses Status: Acute (5) Nasal septal deviation: Code(s): J34.2 - Deviated nasal septum Status: Acute
--- NOTE | 2025-05-25 15:35 | SUR.PREOP ---
PT CALLED WITH TIME CHANGE, HAD QUESTIONS ABOUT NEW PRESCRIPTIONS ORDERED. SPOKE WITH DR. OLSEN, WOULD LIKE PT TO START USING BOTH MEDICATIONS TODAY, NO NASAL SPRAYS, SUPPLIMENTS OR VITAMINS. RETURNED CALL TO PT, PT INSTRUCTED DIRECTED BY .
[2025-05-28] VITALS (8 sets, daily range): BP systolic 111–144; BP diastolic 67–76; PULSE 65–72; RESP 14–18; TEMP 36.2–37.1; O2SAT 93–97; BMI 37.6
--- OUTSIDE RECORDS SUMMARY | 2025-05-28 01:28 | XMS_ITS | Clinical Summary ---
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 Gender Identity Not on file Sexual Orientation Not on file Plan of Treatment Health Maintenance Due Date Last Done Comments Colorectal Cancer Screening Colonoscopy (10 Years) 1955 Hepatitis C 1973 DTaP, Tdap and Td Vaccines ( 1 - Tdap) 1974 Zoster Vaccines (1 of 2) 2005 Annual Medicare Wellness Visit 2020 PHQ-2 (Physician [place]) 08/09/2024 COVID-19 Vaccine (3 - 2024-2 6 season) 2025 07/25/2021, 07/04/2021 Influenza Adult (#1) 2025 08/11/2019, 05/16/2018 RSV Immunization or 60+ Years (1 - 1-dose 75+ series) 2030 Pneumococcal Vaccine: 50+ Years Completed 06/03/2022, 10/04/2020 Hepatitis A Vaccines Aged Out No long er eligible based on patient's age to complete this topic Meningococcal B Vaccine Aged Out No l onger eligible based on patient's age to complete this topic Meningococcal Vaccine Aged Out No gemini angella eligible based on patient's age to complete this topic RSV Immunizations Under 20 Months Aged Out No longer eligible b ased on patient's age to complete this topic Insurance MEDICARE AETNA Care Teams Wire Stitcher Relationship Specialty Start Date End Date Nikki Corado MD [address] [place] [address] PCP - General FAMILY PRACTICE 10/07/22
--- OUTSIDE RECORDS SUMMARY | 2025-05-28 01:28 | XMS_ITS | Clinical Summary ---
Author Organization [facility] Address [address] [place] [address] Care Team Providers Care Quarter Supervisor Name Role Phone Fany SCRUGGS MD, Tristen Unavailable [phone] Nikki Corado MD Primary Care Provider [phone] Source Comments [facility],non-owned Affiliates and Associated Physician Practices is amultiple site organization consisting of ambulatory clinics and hospital sitesin [place], [place], [place] and [place]. This disclosure is being madepursuant to the Care Everywhere program and may not contain all information available regarding this patient. Last updated 18.[facility] Allergies No known active allergies Medications * Be aware that medications may not be up to date on this document. Alwaysverify current medications with the patient. 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 Gender Identity Not on file Sexual Orientation [...] Tdap) 1974 PNEUMOCOCCAL VACCINE 50+ (1 of 2 - PCV) 1974 ZOSTER VACCINE (1 of 2) 2005 DEPRESSION SCREENING 08/09/2024 06/21/2024 SCREENING FOR DIABETES 12/02/2024 , 12/02/2021, 12/02/2021, Additional history exists COVID-19 VACCINE [...] this topic Medical Devices Implanted Type Area Casting Repairer Device Identifier Shelf Expiration Date Model / Serial / Lot Acetabular Cup Implanted:Qty: 1 on 03/12/2015 by Tristen Soares IV, MD at [facility] Left: [employer] 10/06/2024 [id number] / / [id number] Acetabular Liner Implanted:Qty: 1 on 03/12/2015 by Tristen Soares IV, MD at [facility] Left: [employer] 01/03/2020 [id number] / / [id number] Scrw Selftap Lo Prof Ti 6.5 X 30mm Implanted:Qty: 1 on 03/12/2015 by Tristen Soares IV, MD at [facility] Left: [employer] 02/12/2025 [id number] / / [id number] Ceramic Head Implanted:Qty: 1 on 03/12/2015 by Tristen Soares IV, MD at [facility] Left: [employer] 03/08/2025 [id number] / / [id number] Micro Femoral Stem Implanted:Qty: 1 on 03/12/2015 by Tristen Soares IV, MD at [facility] Left: [employer] 05/08/2024 [id number] / / [id number] Minus 3 Taper Adapter Implanted:Qty: 1 on 03/12/2015 by Tristen Soares IV, MD at [facility] Left: [employer] 11/06/2024 [id number] / / [id number] Slv Centering G7 Std Ofst Tpr Hip Ti Ty Implanted:Qty: 1 on 11/25/2017 by Tristen Soares IV, MD at [facility] Right: Hip [employer] 02/16/2027 [id number] / / [id number] Stem Tprlok Microplast Hi Offst Sz 15 Implanted:Qty: 1 on 11/25/2017 by Tristen Soares IV, MD at [facility] Right: Hip [employer] 06/10/2027 [id number] / / [id number] Shell Actb 56mm Hip Lmt Hl Clr Cd Por G7 Implanted:Qty: 1 on 11/25/2017 by Tristen Soares IV, MD at [facility] Right: Hip [employer] 10/28/2027 [id number] / / [id number] Liner Actb G7 F Ntrl 36mm E1 Hip Implanted:Qty: 1 on 11/25/2017 by Tristen Soares IV, MD at [facility] Right: Hip [employer] 10/23/2022 [id number] / / [id number] Head Fem 36mm Hip Blx D Biolox Optn G7 Implanted:Qty: 1 on 11/25/2017 by Tristen Soares IV, MD at [facility] Right: Hip [employer] 03/17/2027 [id number] / / [id number] Stem Hum W/Align Tpr 45deg 17mm X 55mm Implanted:Qty: 1 on 12/02/2021 by Roxy Layton MD at [facility] Right: Shoulder [employer] 10/25/2030 [id number] / / [id number] Bsplt Glnd Cmprh 25 Mm Mini Shldr Tpr Ad Implanted:Qty: 1 on 12/02/2021 by Roxy Layton MD at [facility] Right: Shoulder [employer] 08/27/2030 [id number] / / [id number] Cmpnt Glnd 40mm Std Rvrs Glenosphere Implanted:Qty: 1 on 12/02/2021 by Roxy Layton MD at [facility] Right: Shoulder [employer] 10/03/2031 [id number] / / [id number] Screw 6.5mm 30mm 3.5mm Cntr Hex Shldr Implanted:Qty: 1 on 12/02/2021 by Roxy Layton MD at [facility] Right: Shoulder [employer] 05/08/2031 [id number] / / [id number] Screw 4.75mm 15mm 3.5mm Lck Fx Ang Hex Implanted:Qty: 1 on 12/02/2021 by Roxy Layton MD at [facility] Right: Shoulder [employer] 11/01/2031 [id number] / / [id number] Screw 4.75mm 20mm 3.5mm Lck Fx Ang Hex Implanted:Qty: 1 on 12/02/2021 by Roxy Layton MD at [facility] Right: Shoulder [employer] 11/06/2031 [id number] / / [id number] Screw 4.75mm 30mm 3.5mm Lck Fx Ang Hex Implanted:Qty: 1 on 12/02/2021 by Roxy Layton MD at [facility] Right: Shoulder [employer] 08/12/2031 [id number] / / [id number] Screw 4.75mm 15mm 3.5mm Lck Fx Ang Hex Implanted:Qty: 1 on 12/02/2021 by Roxy Layton MD at [facility] Right: Shoulder [employer] 11/01/2031 [id number] / / [id number] Mini Humeral Tray Implanted:Qty: 1 on 12/02/2021 by Roxy Layton MD at [facility] Right: Shoulder 01/19/2031 [id number] / / [id number] Brng Hum 40mm Cmprh Std Shldr Vivacit-E Implanted:Qty: 1 on 12/02/2021 by Roxy Layton MD at [facility] Right: Shoulder [employer] [id number] / / [id number] Procedures Procedure Name Priority Date/Time Associated Diagnosis Comments GLUCOSE - POINT OF CARE Routine 12/02/2021 11:50 AM CDT from Last 3 Months or Most Recently Relevant to Health Maintenance Results * (ABNORMAL) GLUCOSE - POINT OF CARE (12/02/2021 11:50 AM CDT) [facility] Glucose WB/POC 111(H) 70 - 106 mg/dL 12/02/2021 11:51 AM CDT [facility] Specimen Type Cap Fingerstick 2021 11:51 AM CDT [facility] Blood BLOOD SPECIMEN / Unknown 12/02/2021 11:50 AM CDT 12/02/2021 11:51 AM CDT Roxy Layton MD LAB - POINT OF CARE ORDERAB LES Final Result [facility] [address] [place] [address] from Last 3 Months or Most Recently Relevant to Health Maintenance Insurance AETNA MEDICARE Advance Directives * Full Code (Latest Code Status on File) Date Activated Date Inactivated Comments 11/25/2017 10:46 AM 11/26/2017 4:02 PM * Full Code Date Activated Date Inactivated Comments 03/12/2015 11:30 AM 03/14/2015 2:04 PM Care Teams Quarter Supervisor Relationship Specialty Start Date End Date iNkki Corado MD [address] [place] [address] PCP - General Family Medicine 11/11/17 [place] [address] [facility] [address] [place] [address] Orthopedic Surgery 01/28/15
[2025-05-28] MEDS: LACTATED RINGERS 1,000 ML 30 ML IV CONT ×2 (10:20→13:30)
[2025-05-28] MEDS: ACETAMINOPHEN 500 MG TABLET 1000 MG PO (10:30)
--- NOTE | 2025-05-28 11:12 | WPDANESEPPF ---
Anes - Initial Pre Proc Eval Procedure: Operation Date: 05/28/25 12:00 Proposed Procedures p Image Guided Right Geri Bullosa Resection, Right Maxillary Antrostomy with Tissue Removal - Morgan Cadet MD s Endoscopic Septoplasty - Morgan Cadet MD Date/Time: 05/28/25 11:12 Surgeon: Morgan Cadet MD Pre Op Diagnosis: Chr Sinusitis Patient Data Age: 69 Gender: M Height: 1.73 m Weight: 112.3 kg Last Vital Signs Temp 37.1 C 05/28/25 10:20 Pulse 72 05/28/25 10:20 Resp 16 05/28/25 10:20 BP 144/75 H 05/28/25 10:20 Pulse Ox 97 05/28/25 10:20 O2 Del Method Room Air 05/28/25 10:20 Allergies Allergy/AdvReac Type Severity Reaction Status Date / Time No Known Allergies Allergy Verified 05/28/25 10:43 Home Medications ?Medication ?Instructions ?Recorded ?Confirmed ?Type Soybean Lecithin 1 cap PO DAILY 05/14/20 05/28/25 History aspirin 81 mg tablet,delayed 81 mg PO DAILY 05/14/20 05/28/25 History release cranberry 500 mg capsule 500 mg PO DAILY 05/14/20 05/28/25 History multivitamin 1 tablet PO DAILY 05/14/20 05/28/25 History omega 2-bmr-elh-fish oil 1,000 mg 1 cap PO BID 05/14/20 05/28/25 History (120 mg-180 mg) capsule (Fish Oil) turmeric 400 mg capsule 800 mg PO DAILY 05/14/20 05/28/25 History ascorbic acid (vitamin C) 500 mg 500 mg PO DAILY 10/10/21 05/28/25 History capsule zinc acetate 50 mg (zinc) capsule 50 mg PO DAILY 10/10/21 05/28/25 History (Galzin) fluticasone propionate 50 2 spray intranasal .bid #48 grams 06/04/23 05/17/25 Rx mcg/actuation nasal spray,suspension (Flonase Allergy Relief) CPAP #1 ea 04/26/24 09/06/24 Rx simvastatin 20 mg tablet 20 mg PO DAILY #90 tabs 09/21/24 05/28/25 Rx doxycycline hyclate 100 mg capsule 100 mg PO BID #14 caps 05/25/25 Rx mupirocin 2 % topical ointment 1 applic topical BID #22 grams 05/25/25 Rx (Centany) Patient hx anesthesia problems: none Family hx anesthesia problems: none Results Review: All pre-operative results and documents have been reviewed as part of the pre-operative evaluation. [facility] Past Medical History Medical History Pre-diabetes Facial pressure Pre-op evaluation Normal colonoscopy (~11/2020) Obesity (BMI 30.0-34.9) Colon cancer screening Wellness examination Obstructive sleep apnea Elevated PSA Left nephrolithiasis HLD (hyperlipidemia) Surgical History Surgical History History of right shoulder replacement Social History Social History Smoking status: Never smoker Second hand tobacco smoke exposure: Yes Alcohol intake: never Substance use: never Substance use type: does not use Lack of Transportation: No Lack of Food: Never True Current Housing: I Have Housing Concerned About Future Housing: No Difficulty Paying for Meds: No Currently Unemployed: No Education: Associate Degree Difficulty w/ Childcare or Family Care: No Living arrangements: with family Gender identity (if verbalized by the patient): Male Spiritual care concerns: No Agree to blood products: Yes Anes - Eval Final PreProcedure Day of Procedure 05/28/25 11:12 Patient weight: obese Heart: regular rate and rhythm Lungs: clear to auscultation Airway: Mallampati scale class III and special considerations poor opening and poor extension Neurological: alert and oriented Last oral intake: >/= 8 hours ASA classification: III Emergent: no Anesthetic plan: proceed Anesthesia type and monitoring: general ETT and standard monitoring Results Review: All pre-operative results and documents have been reviewed as part of the pre-operative evaluation. Informed Consent: The patient's anesthetic plan and its attendant risks and benefits were discussed with the patient/family/POA. Questions were solicited and answers provided to the satisfaction of the patient/family/POA.
--- NOTE | 2025-05-28 11:47 | WPDHPUPDATE1 ---
History and Physical Update Update Date/Time: 05/28/25 11:47 History and Physical has been reviewed, including an updated exam of the patient. There are NO changes in the patient's condition. Risks, benefits, and alternatives have been discussed and questions answered. Patient agrees to proceed with procedure.
[2025-05-28] MEDS: OXYMETAZOLINE HCL 0.05% NAS 15 ML BTL (*BKC) 1 SPRAY NASAL (11:53)
[2025-05-28] MEDS: ceFAZolin 2 GM in SODIUM CHLORIDE 0.9% IV 50 ML 100 ML IVPB (11:53)
[2025-05-28] MEDS: LIDO 1%/EPINEPHRINE 1:100,000 50 ML VIAL (12:14)
[2025-05-28] MEDS: TOBRAMYCIN SULFATE 80 MG/2 ML VIAL 400 MG IRRIGATION (12:45)
[2025-05-28] MEDS: MUPIROCIN 2% OINT 22 GM TUBE 1 APPLIC EACH NARE (13:19)
--- NOTE | 2025-05-28 13:43 | W.PM.PROC2 ---
Procedure Note - Detailed Date of Procedure 05/28/25 Pre-op Diagnosis Chr Sinusitis, septal deviation Post-op Diagnosis Same Procedure Performed 1. Endoscopic assisted septoplasty 2. Right-sided image guided endoscopic maxillary antrostomy with tissue removed Surgeon Morgan Cadet MD Anesthesia General Indications See above Findings Severely deviated rightward septum obstructing the middle meatus. Unfortunate complication concomitant loss of mucosa on the septum, likely to form a small perforation posteriorly., right maxillary sinus full of diseased purulence edematous tissue. No obvious injuries to orbit skull base or surrounding tissue. Description of Procedure Patient identified consent verified preoperative holding ear. Patient brought operating. Time-out performed. General anesthesia induced endotracheal tube secured airway. Patient prepped draped position procedure confirmed 2nd time-out performed. Image image guidance initiated confirmed. 0 degree endoscope utilized bilateral nasal passages viewed. Right septal deviation obstructing operative site. Total 15 cc 1% lidocaine 1 100,000 parts epinephrine checked in the bilateral nasal septum. That shows a total about 12 cc. [place] [employer] incision made left-sided left nasal septal flap elevated no tears. Osteotome utilized to cross over to the other side of the septum. Right nasal septal flap elevated with 7 [place] suction. No obvious tears. Deviated septum removed with Merced forceps Bruno Balderrama forceps and osteotome. When removing a large spur which was the largest contributor to the right-sided obstructed a right-sided tear was obvious. I must have inadvertently created a left-sided tear when removing the spur. This perforation had a very small piece of DuraGen placed in between it. Mario Alberto incision was closed with 4 interrupted 5 0 fast gut sutures. Very good approximation. Right maxillary antrostomy performed under image guidance is performed with [employer] Kidebrider rad 60 microdebrider double ball tip probe straight through cutter and backbiter. Backbiter. Great care was taken to not to injure the nasal lacrimal duct orbit or any surrounding tissue. The wound was then copiously irrigated for about 20 minutes with sterile normal saline infused with tobramycin. Blood loss about 30 cc. Fernandez splints were placed sutured anteriorly using a 3-0 mattress nylon suture. The right was ensured to be lateral to the middle turbinate. I performed all dictated portions of procedure no obvious complications other than possible posterior small septal perforation slight bifid measuring several mm across each 1. Care the patient given Anesthesiology patient taken to PACU in good condition no obvious complications. Estimated Blood Loss 30 Drains No Packing No Pathology None sent Complications No immediate complications (Possible septal perforation) Condition Stable Disposition PACU [facility] Billing Surgery - Charge Forward: Surgery Billing
[2025-05-28] MEDS: oxyCODONE HCL (*CRX) 5 MG TAB IR PO (14:52)
== END 2025-05-28 15:21 | disposition home or self-care (01) ==
PROVIDERS: PCP Family Medicine; Visit Provider Otolaryngology
PROC: (CPT 30520; principal; 2025-05-28 12:00)
PROC: (CPT 30520; 2025-05-28 12:00)
DX: J32.9 Chronic sinusitis, unspecified (principal); J34.2 Deviated nasal septum; J34.89 Other specified disorders of nose and nasal sinuses; G89.18 Other acute postprocedural pain; J30.89 Other allergic rhinitis; B49 Unspecified mycosis; E78.5 Hyperlipidemia, unspecified; R73.03 Prediabetes; G47.33 Obstructive sleep apnea (adult) (pediatric); E66.9 Obesity, unspecified; Z68.37 Body mass index [BMI] 37.0-37.9, adult; Z79.82 Long term (current) use of aspirin; Z99.89 Dependence on other enabling machines and devices; Z98.890 Other specified postprocedural states
CPT/HCPCS: 30520; 31267; J0690; A9270; J2003; J2004; J2405; J2704; J3010; J3260; J7120

== ENCOUNTER 2025-06-28 12:43 | Outpatient (CLI) | payer MEDICARE, SELFPAY ==
--- NOTE | ~2025-06-28 | CT_ITS ---
EXAMINATION: CT sinus wo con COMPARISON: None HISTORY: J30.89 - Other allergic rhinitis TECHNIQUE: Axial images were obtained without IV contrast. Sagittal, coronal reconstruction images were obtained from the axial views. CT scan performed using dose optimization techniques including the following automated exposure control; adjustment of mA and/or kV; use of iterative reconstruction technique. Automatic exposure control was used to reduce radiation dose. Permanent radiation dose record is archived to PACS. FINDINGS: Visualized brain parenchyma, optic globes and soft tissues are unremarkable The frontal sinuses are unremarkable. There is minimal mucosal thickening in the ethmoidal air cells bilaterally. Severe opacification of the right ostiomeatal complex with obstruction of the outflow of the right maxillary sinus noted. Minimal mucosal thickening of the left maxillary sinus. The left ostiomeatal complex is patent. The nasal septum is in the midline. Mild thickening of the turbinates with no significant narrowing of the nasal cavities. Sphenoid sinuses are unremarkable. No osseous destruction or wall thickening is identified IMPRESSION: Severe right maxillary sinusitis with underlying polyp formation suspected Reviewed, dictated and finalized at location P. T LINE FE[facility]ER IMPRESSION: Severe right maxillary sinusitis with underlying polyp formation nazanin montoya
== END 2025-06-28 12:44 | disposition home or self-care (01) ==
PROVIDERS: PCP Family Medicine; Visit Provider Otolaryngology
DX: J30.89 Other allergic rhinitis (principal); B49 Unspecified mycosis; J34.89 Other specified disorders of nose and nasal sinuses; J32.0 Chronic maxillary sinusitis
CPT/HCPCS: 70486